=== PATIENT | female | born 1960 | race Caucasian/White ===

== ENCOUNTER 2016-08-24 07:46 | Emergency (ER) | payer BC ==
[2016-08-24 07:58] VITALS: BP 110/77
--- NOTE | 2016-08-24 09:09 | RAD ---
INDICATION: Right knee pain COMPARISON: Right knee November 05, 2003 TECHNIQUE: AP, lateral, tunnel, and sunrise views were obtained. FINDINGS: There is moderate tricompartmental osteophyte change consisting of spurring of all 3 joint space compartments. There is narrowing about the medial joint space compartment and the patella femoral joint space compartment. There are early findings of chondrocalcinosis. There is no joint effusion. IMPRESSION: MODERATE TRICOMPARTMENTAL OSTEOARTHRITIS.
--- NOTE | 2016-08-24 09:41 | UC ---
Verenice Mora Auryana, scribed for Wanda Camarena DO on 08/24/16 at 0905 . Knee Pain HPI - HPI Summary HPI Summary: 55 year old female presents with right knee pain starting yesterday. She reports that the pain started last night, was initially achy, and then upon standing, the right knee gave out suddenly - "caught herself, but didn't go down ". She reports that the pain was severe at the time of the incident, and was unable to bear weight after. She reports clicking of the knee with movement. Currently the pain is a 3/10 without movement. Pain is aggravated by weight bearing. She denies any redness, bruising, swelling, or any fevers, chills, sorethroat, chest pain, SOB, YAO, or any rashes. No above knee pain ad no ankle pain. 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 - History of Current Complaint Chief Complaint: UCLowerExtremity Stated Complaint: KNEE INJURY Time Seen by Provider: 08/24/16 09:22 Hx Obtained From: Patient Hx Last Menstrual Period: n/a ?: No Onset/Duration: Sudden Onset, Lasting Days - last night, Still Present Severity Initially: Moderate Severity Currently: Moderate Location Of Injury: right knee Pain Intensity: 3 - with no movement Pain Scale Used: 0-10 Numeric Character: Dull, Aching Aggravating Factor(s): Movement Alleviating Factor(s): Rest Associated Signs And Symptoms: Positive: Negative Able to Bear Weight: No - extreme pain - Allergies/Home Medications Allergies/Adverse Reactions: Allergies Allergy/AdvReac Type Severity Reaction Status Date / Time No Known Allergies Allergy Verified 07/13/15 06:52 Home Medications: Home Medications Garlique 1 tab PO DAILY 08/24/16 [History] PMH/Surg Hx/FS Hx/Imm Hx - Additional Past Medical History Additional PMH: h/o twisted bowel, s/p tot colectomy GI/ History: Other Other GI/ History: 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 COLECTOMY. RIGHT ACL. LEFT WRIST - Family History Known Family History: Positive: Other - alzheimers, volvulus - Social History Occupation: Employed Full-time Lives: With Family Alcohol Use: None Substance Use Type: None Smoking Status (MU): Never Smoked Tobacco Have You Smoked in the Last Year: No Household Exposure Type: Cigarettes - Immunization History Most Recent Influenza Vaccination: 2014 Most Recent Tetanus Shot: 2012 Most Recent Pneumonia Vaccination: Never Review of Systems Constitutional: Negative Skin: Negative Eyes: Negative ENT: Negative Respiratory: Negative Cardiovascular: Negative Gastrointestinal: Negative Genitourinary: Negative Motor: Negative Neurovascular: Negative Musculoskeletal: Arthralgia - right knee pain Neurological: Negative Psychological: Negative All Other Systems Reviewed And Are Negative: Yes Physical Exam Triage Information Reviewed: Yes Appearance: Well-Appearing, No Pain Distress, Well-Nourished Vital Signs: Initial Vital Signs Temp 99.5 F 08/24/16 07:52 Pulse 73 08/24/16 07:52 Resp 16 08/24/16 07:52 BP 110/77 08/24/16 07:52 Pulse Ox 100 08/24/16 07:52 Vital Signs Reviewed: Yes Eyes: Positive: Conjunctiva Clear. Negative: Discharge ENT: Positive: Hearing grossly normal. Negative: Muffled/hoarse voice Neck: Positive: Supple, Nontender Respiratory: Positive: Lungs clear, Normal breath sounds, No respiratory distress, No accessory muscle use Cardiovascular: Positive: RRR, No Murmur Musculoskeletal Exam: Normal Musculoskeletal: Positive: Strength Intact, ROM Intact, Other: - Surgical scar noted otherwise normal knee inspection. Pain with flexion and extension of the right knee Pain with medial stress of the right knee Positive McMurrays sign Neurological: Positive: Alert, Muscle Tone Normal Psychological Exam: Normal Psychological: Positive: Age Appropriate Behavior Skin Exam: Normal, Other - warm, dry, normal color Skin: Positive: Other Diagnostics - Radiology RIGHT KNEE XR Xray Interpretation: Positive (See Comments) - MODERATE TRICOMPARTMENTAL OA Radiology Interpretation Completed By: Radiologist Knee Pain Course/Dx - Differential Dx/Diagnosis Differential Diagnosis/HQI/PQRI: Internal Derangement Of Knee, Sprain, Strain Provider Diagnoses: MCL sprain. Possible internal derangement of the knee Discharge - Discharge Plan Condition: Stable Disposition: HOME Patient Education Materials: Knee Immobilizer (ED), Knee Sprain (ED) Referrals: Ernie Keyes MD [Medical Doctor] - 3 Days (Follow up in 3-5 days or as per ortho.) Drake Cerda MD [Primary Care Provider] - If Needed Additional Instructions: Your history and exam is suspicous for possible internal derrangement of the knee. So, you will need follow up with an orthopedic provider to further evaluate your injury. The documentation as recorded by the Verenice lezama Auryana accurately reflects the service I personally performed and the decisions made by me, Wanda Camarena DO.
== END 2016-08-24 09:44 | disposition home or self-care (01) ==
LOC: UCEAST 07:46
DX: S83.411A Sprain of medial collateral ligament of right knee, initial encounter (principal); X58.XXXA Exposure to other specified factors, initial encounter; Y92.9 Unspecified place or not applicable
CPT/HCPCS: 99212; G0463

== ENCOUNTER 2017-02-12 07:56 | Emergency (ER) | payer BC ==
[2017-02-12 08:13] VITALS: BP 141/84
[2017-02-12] MEDS ORDERED: predniSONE TAB* 20 MG PO ONE (08:21)
[2017-02-12] MEDS ORDERED: Albuterol HFA INHALER* 8 gm MDI INH ONE (08:21)
[2017-02-12] MEDS ORDERED: Amoxicillin PO (*) 250 MG CAP PO ONE (08:22)
[2017-02-12] MEDS ORDERED: Amoxicillin PO (*) 500 MG CAP PO ONE (08:23)
--- NOTE | 2017-02-12 08:33 | UC ---
Respiratory Complaint HPI - HPI Summary HPI Summary: 56 yo female with a 2 month hx of PND during this time she never felt ill then a few days ago she developed a cough/chest tightness and laryngitis along with malaise and myalgias no SOB hx pneumonia - History of Current Complaint Chief Complaint: UCRespiratory Stated Complaint: CHEST CONGESTION COUGH Time Seen by Provider: 02/12/17 08:09 Hx Obtained From: Patient Hx Last Menstrual Period: n/a Onset/Duration: Gradual Onset, Lasting Days Timing: Constant Severity Initially: Mild Severity Currently: Moderate Pain Intensity: 4 Pain Scale Used: 0-10 Numeric Character: Cough: Nonproductive Aggravating Factors: Exertion, Deep Breaths Alleviating Factors: Nothing Associated Signs And Symptoms: Positive: Hoarseness - Allergies/Home Medications Allergies/Adverse Reactions: Allergies Allergy/AdvReac Type Severity Reaction Status Date / Time No Known Allergies Allergy Verified 02/12/17 08:18 PMH/Surg Hx/FS Hx/Imm Hx Previously Healthy: Yes Endocrine History: Thyroid Disease Cardiovascular History: Hypertension Respiratory History: Pneumonia - Surgical History Surgical History: Yes Surgery Procedure, Year, and Place: tubal ligation. COLECTOMY. RIGHT ACL. LEFT WRIST - Family History Known Family History: Positive: Other - alzheimers, volvulus Negative: Hypertension, Respiratory Disease - Social History Alcohol Use: Occasionally Substance Use Type: None Smoking Status (MU): Never Smoked Tobacco Have You Smoked in the Last Year: No Household Exposure Type: Cigarettes - Immunization History Most Recent Influenza Vaccination: 2017 Most Recent Tetanus Shot: 2013 Most Recent Pneumonia Vaccination: Never Review of Systems Constitutional: Fatigue Skin: Negative Eyes: Negative ENT: Sinus Congestion Respiratory: Cough Cardiovascular: Negative Gastrointestinal: Negative Genitourinary: Negative Motor: Negative Neurovascular: Negative Musculoskeletal: Negative Neurological: Negative Psychological: Negative Is Patient Immunocompromised?: No All Other Systems Reviewed And Are Negative: Yes Physical Exam Triage Information Reviewed: Yes Appearance: Well-Appearing, No Pain Distress, Well-Nourished Vital Signs: Initial Vital Signs Temp 98.6 F 02/12/17 08:05 Pulse 76 02/12/17 08:05 Resp 16 02/12/17 08:05 BP 141/84 02/12/17 08:05 Pulse Ox 98 02/12/17 08:05 Vital Signs Reviewed: Yes Eyes: Positive: Conjunctiva Clear ENT: Positive: Hearing grossly normal, TMs normal, Hoarse voice, Uvula midline. Negative: Nasal congestion, Nasal drainage, Tonsillar swelling, Tonsillar exudate, Trismus, Muffled voice, Sinus tenderness Dental Exam: Normal Neck: Positive: Supple, Nontender, No Lymphadenopathy Respiratory: Positive: Normal breath sounds, No respiratory distress, No accessory muscle use, Wheezing - with forced expiration Cardiovascular: Positive: RRR, No Murmur Musculoskeletal: Positive: ROM Intact, No Edema Neurological: Positive: Alert Psychological Exam: Normal Skin Exam: Normal UC Diagnostic Evaluation - Laboratory O2 Sat by Pulse Oximetry: 98 - normal/ not hypoxic Respiratory Course/Dx - Course Course Of Treatment: No MDIs in [facility]. declines neb here. 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
== END 2017-02-12 08:38 | disposition home or self-care (01) ==
LOC: UCEAST 07:56
DX: J20.9 Acute bronchitis, unspecified (principal); I10 Essential (primary) hypertension; E07.9 Disorder of thyroid, unspecified; Z77.22 Contact with and (suspected) exposure to environmental tobacco smoke (acute) (chronic); Z87.01 Personal history of pneumonia (recurrent)
CPT/HCPCS: 99212; A9270-GY; G0463; J7512

== ENCOUNTER 2018-04-07 13:57 | Emergency (ER) | payer BC ==
[2018-04-07 14:19] VITALS: BP 149/80
--- NOTE | 2018-04-07 14:43 | UC ---
Respiratory Complaint HPI - HPI Summary HPI Summary: had cold symps for 10 days, saw PCP and was told URI. now lost her voice and is still coughing. OTC's not helping cough - History of Current Complaint Chief Complaint: UCRespiratory Stated Complaint: COUGH Time Seen by Provider: 04/07/18 14:14 Hx Obtained From: Patient Hx Last Menstrual Period: n/a Onset/Duration: Gradual Onset Pain Intensity: 0 Aggravating Factors: Deep Breaths Alleviating Factors: Nothing Associated Signs And Symptoms: Negative: Fever, Chills, Hemoptysis, Dizziness, Calf Pain, Nasal Congestion - Allergies/Home Medications Allergies/Adverse Reactions: Allergies Allergy/AdvReac Type Severity Reaction Status Date / Time No Known Allergies Allergy Verified 04/07/18 14:11 PMH/Surg Hx/FS Hx/Imm Hx Endocrine History: Hypothyroidism Cardiovascular History: Cardiac Disease Psychological History: Depression - Surgical History Surgical History: Yes Surgery Procedure, Year, and Place: tubal ligation. COLECTOMY. RIGHT ACL. LEFT WRIST - Family History Known Family History: Positive: Other - alzheimers, volvulus Negative: Hypertension, Respiratory Disease - Social History Occupation: Employed Full-time Lives: With Family Alcohol Use: Occasionally Substance Use Type: None Smoking Status (MU): Never Smoked Tobacco Have You Smoked in the Last Year: No Household Exposure Type: Cigarettes - Immunization History Most Recent Influenza Vaccination: 2017 Most Recent Tetanus Shot: 2013 Most Recent Pneumonia Vaccination: Never Review of Systems All Other Systems Reviewed And Are Negative: Yes Constitutional: Positive: Negative. Negative: Fever Skin: Positive: Negative ENT: Positive: Negative Respiratory: Positive: Cough Cardiovascular: Positive: Negative Psychological: Positive: Negative Is Patient Immunocompromised?: No Physical Exam Triage Information Reviewed: Yes Appearance: Well-Appearing, No Pain Distress, Well-Nourished Vital Signs: Initial Vital Signs Temp 97 F 04/07/18 14:13 Pulse 63 04/07/18 14:13 Resp 18 04/07/18 14:13 BP 149/80 04/07/18 14:13 Pulse Ox 98 04/07/18 14:13 Vital Signs Reviewed: Yes Eyes: Positive: Conjunctiva Clear ENT: Positive: Nasal congestion, Other - hoarsness Neck: Positive: No Lymphadenopathy Respiratory: Positive: Lungs clear, No respiratory distress Cardiovascular Exam: Normal Cardiovascular: Positive: RRR Psychological Exam: Normal Skin Exam: Normal UC Diagnostic Evaluation - Laboratory O2 Sat by Pulse Oximetry: 98 Respiratory Course/Dx - Differential Dx/Diagnosis Differential Diagnosis/HQI/PQRI: Bronchitis, Influenza, Laryngitis, Lower Resp Infection, Sinusitis Provider Diagnosis: Bronchitis Discharge - Sign-Out/Discharge Documenting (check all that apply): Patient Departure All imaging exams completed and their final reports reviewed: No Studies - Discharge Plan Condition: Good Disposition: HOME Prescriptions: predniSONE TAB* [Deltasone 10 MG TAB*] 10 mg PO DAILY #27 tab Patient Education Materials: Acute Bronchitis (ED) Referrals: Drake Cerda MD [Primary Care Provider] - 2 Days (if no better) Additional Instructions: drink plenty of fluids start prednisone as directed return if symptoms worsen - Billing Disposition and Condition Condition: GOOD Disposition: Home - Attestation Statements Provider Attestation: I was available for consult. This patient was seen by the ERLINDA. The patient was not presented to , seen by or examined by nd -Don Santo MD
== END 2018-04-07 15:00 | disposition home or self-care (01) ==
LOC: UCEAST 13:57
DX: J40 Bronchitis, not specified as acute or chronic (principal); Z77.22 Contact with and (suspected) exposure to environmental tobacco smoke (acute) (chronic)

== ENCOUNTER 2018-05-02 06:44 | Inpatient (IN) | payer BC ==
--- NOTE | 2018-04-23 10:44 | HP ---
HISTORY AND PHYSICAL: DATE OF ADMISSION/SURGERY: 05/02/18 DATE OF OFFICE VISIT: 04/22/18 SURGEON: Kristy Evangelista MD. PROCEDURE: Right total knee arthroplasty. CHIEF COMPLAINT: Right knee pain. HISTORY OF PRESENT ILLNESS: Ms. Haskins is a 57-year-old female with end-stage osteoarthritis of th e right knee. She has failed conservative treatment and elected to proceed with a right total knee a rthroplasty. PAST MEDICAL HISTORY: Srinivas's thyroiditis, depression, hypertension, and sleep apnea. PAST SURGICAL HISTORY: Right knee surgery x2, colectomy, ORIF of the left wrist and tubal ligation. CURRENT MEDICATIONS: 1. Naproxen 500 mg once a day. 2. Clonidine 0.2 mg once a day. 3. Effexor 150 mg daily. 4. Estroven 1 tab daily. 5. Norvasc 10 mg a day. 6. Levothyroxine 150 mcg a day. ALLERGIES: No known drug allergies. FAMILY HISTORY: Cancer and coronary artery disease. SOCIAL HISTORY: She is a 57-year-old female. She lives with her daughter. She does no smoke, use d rugs or alcohol. REVIEW OF SYSTEMS: A complete 14-point review of systems was reviewed with the patient. It was posi tive for thyroid disease. She denies the history of DVT, PE, hepatitis, HIV or anesthesia problems. PHYSICAL EXAMINATION GENERAL: She is well developed, well nourished, in no acute distress. VITAL SIGNS: She stands 5 feet 4 inches tall, weighs 202 pounds. Blood pressure 120/78, and heart r ate 68. HEENT: Normocephalic, atraumatic. NECK: Supple. No palpable lymph nodes. PULMONARY: Lungs are clear to auscultation bilaterally. CARDIO: Regular rate and rhythm. Strong S1 and S2. ABDOMEN: Soft, nontender, and nondistended. MUSCULOSKELETAL: Right lower extremity: The skin is intact. There are no open wounds or abrasions. There is moderate joint effusion. Range of motion is 10 to 120 degrees of flexion with patellofemo ral crepitus. She has 2+ dorsalis pedis pulse. She is able to dorsiflex and plantar flex and has in tact sensation. NEUROLOGIC: She is alert and oriented x3. ASSESSMENT AND PLAN: Ms. Haskins is a 57-year-old female with end-stage osteoarthritis of the rig ht knee. She has failed conservative treatment and elected to proceed with a right total knee arthro plasty. Surgery is scheduled for 05/02/[address] Evangelista discussed the risks and benefit s of the surgery at today's visit and all of her questions were answered. She will follow with Dr. Diane zamudio 2 weeks after the surgery. BASSEM HAYS [id number]/[facility] #: [id number]
[~2018-05-02 06:44] MED LIST: Acetaminophen IV 1GM/100ML * 1,000 MG/100 ML VIAL IVPB ONE; Buffered Lidocaine 1% SYRIN* 1 ML/SYRINGE INTRADERM ONE; Dexamethasone IV* 4 MG/ML 1 ML (4 MG) IV SLOW PU ONE; Famotidine IV* 10 MG/ML 2 ML (20 mg) IV ONE; Gabapentin CAP(*) 300 MG PO ONE; Lactated Ringers 1000 ML Bag* 1,000 ML IV SCH; Tranexamic Acid 1,000 MG in NS 0.9% 50 ML* (outpatient use) IV SCH; celeCOXIB CAP* 200 MG PO ONE
--- OUTSIDE RECORDS SUMMARY | 2018-05-02 06:48 | XMS REPORT | Continuity of Care Document ---
:1960 External Reference #:[id number] Author Name UrielLyndsay mora Care Team Providers Name Role Phone Carlos Sierra MD Primary Care Physician Unavailable Payers Date Identification Numbers Payment Provider Subscriber Effective: 2013 Policy Number: [id number] BS Facets Becky Haskins PayID: [id number] [address] [address] [place] [address] Advance Directives Description No Information Available Problems Date Description Provider Status Onset: 11/17/2013 Electrocardiogram abnormal Emory Roldan M.D. Onset: 11/17/2013 Malignant essential hypertension Emory Roldan M.D. Onset: 11/17/2013 Dyspnea Emory Roldan MYelena Onset: 11/17/2013 Paroxysmal supraventricular Emory Roldan tachycardia M.DHilario Onset: 11/17/2013 Edema Emory Roldan M.D. Onset: 08/25/2016 Localized, secondary Kristy Evangelista M.D. Active osteoarthritis Onset: 07/25/2017 Localized, primary osteoarthritis Kristy Evangelista M.D. Active Onset: 08/09/2017 Obstructive sleep apnea syndrome Zahra Webster DNP, RN, Active SUPERINTENDENT LAUNDRY-BC Onset: 08/09/2017 Hypersomnia Zahra Webster DNP, RN, Active SUPERINTENDENT LAUNDRY-BC Family History Date Family Member(s) Observation Comments Father Twisted Bowels Father due to Alzheimer's Disease () Father Alzheimer's Disease Mother Lung Cancer Mother due to Lung Cancer () Mother Liver Cancer Mother due to Liver Cancer () Mother [place] smoker for 40 years Siblings 5 1 and 4 living Social History Type Date Description Comments Sex Unknown Marital Status Lives With Son and his girlfriend Occupation radiology aide Tobacco Use Start: Unknown Never Smoked Cigarettes Smoking Status Reviewed: 04/30/18 Never Smoked Cigarettes ETOH Use Denies alcohol use Tobacco Use Start: Unknown Patient has never smoked Recreational Drug Use Denies Drug Use Exercise Type/Frequency Exercises rarely Allergies, Adverse Reactions, Alerts Description No Known Drug Allergies Medications Medication Date Status Form Strength Qnty SIG Indications Ordering Provider Naproxen 11/02 Active Tablets 500mg 90tab 1 tablet M25.562 Kristy s with food by Jean Carlos, mouth twice M.D. a day Clonidine HCL 04/24 Active Tablets 0.2mg 60tab 1 by mouth Quyb s once a day Omaira Adler M.D. Effexor XR 11/17 Active Caps ER 150mg 90cap 1 by mouth Lashell 24HR s every day Omaira Adler M.D. Estroven 11/17 Active Tablets 1 tab daily Qutaybdiana SHilario Adler M.D. Norvasc Active Tablets 10mg 30tab 1 by mouth Unknown /0000 s every day Levothyroxine Active Tablets 150mcg 30tab 1 by mouth Unknown Sodium /0000 s every day Vesicare 11/17 Hx Tablets 5mg 30tab 1 po daily Qu s S. - Vitor 07/10 , MYelena Milk Of 11/17 Hx Suspension 7.75% 3000m 30 yb l milliliters S. - oral 2x day Maghaydah 07/10 , M.DHilario Vitamin D High 11/17 Hx Capsules 2000Units 1 by mouth Qutaybeh every day S. - haydah 04/21 , M.D. Clonidine HCL 11/17 Hx Tablets 0.1mg 90tab 1 by mouth Qutayb s bid S. - Rosemarieah 04/24 , M.DHilario /2014 Orphenadrine Hx Tablets ER 100mg 1 po bid prn Unknown Citrate ER /0000 12HR for spasm - 11/16 Prednisone 00/00 Hx Tablets 10mg 30tab 2 bid x Unknown /0000 s 3days, then - 2 am, 1pm 11/16 x3days 1 bid x3days then 1 qd x3 days Fluoxetine HCL Hx Capsules 20mg 90cap 3 by mouth Unknown /0000 s every day - 11/16 Oxybutynin 00 Hx Tablets ER 15mg 90tab 1 by mouth Unknown Chloride ER /0000 24HR s every day - 11/16 Valacyclovir Hx Tablets 500mg 60tab take 1 po qd Unknown HCL /0000 s - 06/16 Naproxen Hx Tablets 500mg 40tab 1 tablet Unknown /0000 s with food by - mouth once a 11/02 day prn /201712/25/13 - pt only takes once a day Clonidine HCL Hx Tablets 0.1mg 30tab 1 po q Unknown /0000 s bedtime - 11/[address] 20mg 90cap 1 by mouth Unknown /0000 s every day - 07/10 Medications Administered in Office Medication Date Status Form Strength Qnty SIG Indications Ordering Provider Depomedrol Administered Injection Kristy 40MG 018 Tom Evangelista Depomedrol Administered Injection Kristy 40MG 018 Tom Evangelista Depomedrol Administered Injection Kristy 40MG Anand Evangelista M.D. Depomedrol Administered Injection Kristy 40MG 018 Tom Evangelista Depomedrol Administered Injection Roseanna 40MG 010 SHELBY Meadows Immunizations Description No Information Available Vital Signs Date Vital Result Comment 04/30/2018 8:13am Height 64 inches 5'4" Weight 202.00 lb Heart Rate 70 /min BP Systolic Sitting 130 mmHg Lue large cuff BP Diastolic Sitting 82 mmHg Lue large cuff Respiratory Rate 16 /min O2 % BldC Oximetry 99 % BMI (Body Mass Index) 34.7 kg/m2 04/22/2018 8:40am Height 64 inches 5'4" Weight 202.00 lb Heart Rate 68 /min BP Systolic 120 mmHg BP Diastolic 78 mmHg BMI (Body Mass Index) 34.7 kg/m2 02/01/2018 3:35pm Height 64 inches 5'4" Weight 198.00 lb BP Systolic 116 mmHg BP Diastolic 71 mmHg Respiratory Rate 15 /min Pain Level 7 BMI (Body Mass Index) 34.0 kg/m2 11/02/2017 3:06pm Height 64 inches 5'4" Weight 214.75 lb Heart Rate 61 /min BP Systolic 122 mmHg BP Diastolic 86 mmHg Respiratory Rate 16 /min Body Temperature 97.6 F Pain Level 5 BMI (Body Mass Index) 36.9 kg/m2 10/16/2017 8:00am Height 64 inches 5'4" Weight 211.00 lb Heart Rate 56 /min BP Systolic Sitting 110 mmHg BP Diastolic Sitting 68 mmHg Respiratory Rate 14 /min O2 % BldC Oximetry 99 % BMI (Body Mass Index) 36.2 kg/m2 08/09/2017 8:12am Height 64 inches 5'4" Weight 208.25 lb Heart Rate 66 /min BP Systolic Sitting 124 mmHg Rue regular cuff BP Diastolic Sitting 84 mmHg Rue regular cuff Respiratory Rate 16 /min O2 % BldC Oximetry 97 % BMI (Body Mass Index) 35.7 kg/m2 07/25/2017 12:01pm Height 64 inches 5'4" Weight 208.00 lb Heart Rate 66 /min BP Systolic Sitting 120 mmHg BP Diastolic Sitting 84 mmHg Respiratory Rate 16 /min Pain Level 5 BMI (Body Mass Index) 35.7 kg/m2 07/11/2017 7:43am Height 64 inches 5'4" Weight 204.00 lb Heart Rate 68 /min BP Systolic Sitting 118 mmHg BP Diastolic Sitting 82 mmHg Respiratory Rate 14 /min O2 % BldC Oximetry 99 % BMI (Body Mass Index) 35.0 kg/m2 Neck Circumference in inches 14.75 08/25/2016 11:33am Height 64 inches 5'4" Weight 200.00 lb Heart Rate 55 /min BP Systolic 116 mmHg BP Diastolic 79 mmHg Body Temperature 97.6 F BMI (Body Mass Index) 34.3 kg/m2 06/09/2014 8:18am Height 64 inches 5'4" Weight 213.00 lb Heart Rate 70 /min BP Systolic 112 mmHg LA reg BP Diastolic 80 mmHg LA reg BMI (Body Mass Index) 36.6 kg/m2 04/24/2014 3:05pm Height 64 inches 5'4" Weight 211.75 lb Heart Rate 84 /min BP Systolic Sitting 148 mmHg left, reg BP Diastolic Sitting 98 mmHg left, reg BMI (Body Mass Index) 36.3 kg/m2 12/25/2013 3:19pm Height 64 inches 5'4" Weight 206.00 lb Heart Rate 72 /min BP Systolic Sitting 122 mmHg LA, reg BP Diastolic Sitting 86 mmHg LA, reg BMI (Body Mass Index) 35.4 kg/m2 11/17/2013 3:23pm Height 64 inches 5'4" Weight 204.50 lb Heart Rate 66 /min BP Systolic 150 mmHg LA reg cuff BP Diastolic 97 mmHg LA reg cuff BMI (Body Mass Index) 35.1 kg/m2 11/17/2013 3:17pm Height 64 inches 5'4" Weight 204.50 lb BMI (Body Mass Index) 35.1 kg/m2 Results Test Date Facility Test Result H/L Range Note Laboratory test 04/22/2018 [facility] TSH (Thyroid 2.94 mcIU/mL N 0.34-5.[address] [place]) [place] [address] [phone] Type & Screen 04/22/2018 [facility] Patient Blood O Positive [address] [place] [address] [phone] Antibody Screen NEGATIVE Laboratory test 04/22/2018 [facility] Partial 25.6 seconds Low 26.0-36.[address] [place] [address] PTT [phone] Inr/Protime 04/22/2018 [facility] Inr 0.79 N 0.77-1.[address] [place] [address] [phone] Comp Metabolic 04/22/2018 [facility] Sodium 138 mmol/L N 135- [address] [place] [address] [phone] Potassium 4.4 mmol/L N 3.5-5.0 Chloride 106 mmol/L N 101-111 Co2 Carbon Dioxide 25 mmol/L N 22-32 Anion Gap 7 mmol/L N 2-11 Glucose 102 mg/dL High 70-100 Blood Urea Nitrogen 13 mg/dL N 6-24 Creatinine 0.73 mg/dL N 0.51-0.95 BUN/Creatinine Ratio 17.8 N 8-20 Calcium 9.5 mg/dL N 8.6-10.3 Total Protein 6.4 g/dL N 6.4-8.9 Albumin 3.9 g/dL N 3.2-5.2 Globulin 2.5 g/dL N 2-4 Albumin/Globulin Ratio 1.6 N 1-3 Total Bilirubin 0.50 mg/dL N 0.2-1.0 Alkaline Phosphatase 56 U/L N 34-104 Alt 15 U/L N 7-52 Ast 16 U/L N 13-39 Egfr Non- 81.9 >60 Egfr 99.1 >60 1 CBC Auto Diff 04/22/2018 [facility] White Blood 5.3 10^3/uL N 3.5-10.[address] [place] [address] [phone] Red Blood Count 4.05 10^6/uL N 4.00-5.40 Hemoglobin 12.4 g/dL N 12.0-16.0 Hematocrit 38 % N 35-47 Mean Corpuscular Volume 93 fL N 80-97 Mean Corpuscular Hemoglobin 31 pg N 27-31 Mean Corpuscular HGB Conc 33 g/dL N 31-36 Red Cell Distribution Width 14 % N 10.5-15 Platelet Count 278 10^3/uL N 150-450 Mean Platelet Volume 7.6 fL N 7.4-10.4 Abs Neutrophils 3.1 10^3/uL N 1.5-7.7 Abs Lymphocytes 1.6 10^3/uL N 1.0-4.8 Abs Monocytes 0.5 10^3/uL N 0-0.8 Abs Eosinophils 0.2 10^3/uL N 0-0.6 Abs Basophils 0.1 10^3/uL N 0-0.2 Abs Nucleated RBC 0 10^3/uL Granulocyte % 57.4 % Lymphocyte % 29.8 % Monocyte % 8.5 % Eosinophil % 3.3 % Basophil % 1.0 % Nucleated Red Blood Cells % 0 Comp Metabolic Panel 11/18/2013 [facility] Sodium 135 mmol/L N 133-[address] [place] [address] [phone] Potassium 4.4 mmol/L N 3.7-5.6 Chloride 105 mmol/L N 101-111 Co2 Carbon Dioxide 27 mmol/L N 22-32 Anion Gap 3 mmol/L N 2-11 Glucose 100 mg/dL N 70-100 Blood Urea Nitrogen 14 mg/dL N 6-24 Creatinine 0.91 mg/dL N 0.51-0.95 BUN/Creatinine Ratio 15.4 N 8-20 Calcium 9.2 mg/dL N 8.6-10.3 Total Protein 6.8 g/dL N 6.4-8.9 Albumin 4.0 g/dL N 3.2-5.2 Globulin 2.8 g/dL N 2-4 Albumin/Globulin Ratio 1.4 N 1-3 Total Bilirubin 0.40 mg/dL N 0.2-1.0 Alkaline Phosphatase 52 U/L N 34-104 Alt 14 U/L N 7-52 Ast 16 U/L N 13-39 Egfr Non- 64.4 N >60 Egfr 82.8 N >60 2 Laboratory test 11/18/2013 [facility] B Type Natriuretic 22 pg/ mL N [address] [place] [address] [phone] C Reactive Protein < 0.10 mg/L N < 5.00 4 Erythrocyte Sed Rate 17 mm/Hr N 0-30 1 Because ethnic data is not always readily available, this report includes an eGFR for both -Americans and non- Americans. The National Kidney Disease Education Program (NKDEP) does not endorse the use of the MDRD equation for patients that are not between the ages of 18 and 70, are , have extremes of body size, muscle mass, or nutritional status, or are non- or non-. According to the National Kidney Foundation, irrespective of diagnosis, the stage of the disease is based on the level of kidney function: Stage Description GFR(mL/min/1.73 m(2)) 1 Kidney damage with normal or decreased GFR 90 2 Kidney damage with mild decrease in GFR 60-89 3 Moderate decrease in GFR 30-59 4 Severe decrease in GFR 15-29 5 Kidney failure <15 (or dialysis) 2 Because ethnic data is not always readily available, this report includes an eGFR for both -Americans and non- Americans. The National Kidney Disease Education Program (NKDEP) does not endorse the use of the MDRD equation for patients that are not between the ages of 18 and 70, are , have extremes of body size, muscle mass, or nutritional status, or are non- or non-. According to the National Kidney Foundation, irrespective of diagnosis, the stage of the disease is based on the level of kidney function: Stage Description GFR(mL/min/1.73 m(2)) 1 Kidney damage with normal or decreased GFR 90 2 Kidney damage with mild decrease in GFR 60-89 3 Moderate decrease in GFR 30-59 4 Severe decrease in GFR 15-29 5 Kidney failure <15 (or dialysis) 3 >100 to <200 pg/mL: likely compensated congestive heart failure (CHF) 200 to 400 pg/mL: likely moderate CHF >400 pg/mL: likely moderate to severe CHF [place] [facility] 4 Acute inflammation: >10.00 Procedures Date Code Description Status 02/01/201894821 Inject/Drain Joint/Bursa Major W/O US Completed 11/02/2017 Inject/Drain Joint/Bursa Major W/O US Completed 07/17/2017 83140 Sleep Study Unattended,HRT Rate,Oxygen Sat,Resp Completed Effort/Airflow 07/16/2015 76562 EKG, Interpretation Only Completed 07/14/2015 31828 EKG, Interpretation Only Completed 04/02/2014 52500 Treadmill Interp/Report Only Completed 04/02/2014 89703 Stress Test Supervsn W/Out I/R Completed 02/03/2014 56474 ECHO Stress Test Incl Perf Contiuous ekg Monitoring Completed W/Phys Superv 11/25/2013 85181 ECHO Transthorasic Realtime 2D W Doppler & Color Flow Completed Hosp 11/25/2013 19070 Holter Monitor Review (24 hr)dr review & interp only Completed 11/17/2013 16702 EKG Tracing & Interpretation Completed 01/13/2011 33105 Rad Exam; Elbow, Limited Completed 01/04/2011 35882 Rad Exam; Elbow, Limited Completed 12/27/2010 20301 Closed Treatment Radial Head Or Neck FX W/O Completed Manipulation 01/13/2010 58092 Rad Exam; OS Alcis Completed 11/10/2009 69076 Xray Knee 3 Views Completed 11/10/2009 22271 Rad Exam; Knee, Ap&L Completed 11/10/200922368 Inject/Drain Joint/Bursa Major W/O US Completed 11/10/2009 [id number] Colonoscopy Completed 11/13/2005 [id number] Colonoscopy Completed Encounters Type Date Location Provider Dx Diagnosis Office Visit 04/30/2018 [facility] G47.33 Obstructive sleep 8:30a Sleep Services Of ALAN Berrios apnea (adult) [facility] (pediatric) G47.10 Hypersomnia, unspecified Z68.34 Body mass index (BMI) 34.0-34.9, adult Office Visit 02/01/2018 3:15p Orthopedic Services Kristyashleigh Evangelista, M25.562 Pain in left Of C.M.A. M.D. knee M25.561 Pain in right knee M25.462 Effusion, left knee M25.461 Effusion, right knee M17.0 Bilateral primary osteoarthritis of knee Office Visit 11/02/2017 3:00p Orthopedic Services Kristy Evangelista, M25.562 Pain in left Of C.M.A. M.D. knee M25.561 Pain in right knee M25.462 Effusion, left knee M25.461 Effusion, right knee M17.0 Bilateral primary osteoarthritis of knee Office Visit 10/16/2017 8:15a [facility] Mary G47.33 Obstructive sleep Sleep Services Of MD Jose apnea (adult) [facility] (pediatric) G47.10 Hypersomnia, unspecified E66.09 Other obesity due to excess calories Office Visit 08/09/2017 [facility] And Zahra G47.33 Obstructive sleep 8:00a Sleep Services Of JENIFER Webster, RN, apnea (adult) [facility] SUPERINTENDENT LAUNDRY-BC (pediatric) G47.14 Hypersomnia due to medical condition E66.9 Obesity, unspecified Z68.35 Body mass index (BMI) 35.0-35.9, adult Office Visit 07/25/2017 Orthopedic Kristy M17.11 Unilateral primary 11:30a Services Of Tom Evangelista osteoarthritis, right C.M.A. knee M25.561 Pain in right knee M25.461 Effusion, right knee M17.0 Bilateral primary osteoarthritis of knee Office Visit 07/11/2017 8:00a [facility] Mary G47.9 Sleep disorder, Sleep Services Of MD Jose unspecified [facility] G47.10 Hypersomnia, unspecified E66.09 Other obesity due to excess calories Z68.35 Body mass index (BMI) 35.0-35.9, adult Office Visit 08/25/2016 10:30a Orthopedic Services Kristy Evangelista, M25.561 Pain in right Of C.M.A. MHilarioD. knee M25.461 Effusion, right knee M17.31 Unilateral post-traumatic osteoarthritis, right knee S83.411A Sprain of medial collateral ligament of right knee, init Office Visit 06/09/2014 8:30a [facility] Lynn Strange, 786.05 Shortness Of PA Breath 427.0 PSVT Paroxysmal Supraventricular Tachycardia 401.1 Hypertension Benign Office Visit 04/24/2014 3:40p [facility] Usman S. 786.05 Shortness Of Tom Adler Breath 427.0 PSVT Paroxysmal Supraventricular Tachycardia 278.00 Obesity Unspec 401.0 Hypertension Malignant Office Visit 04/02/2014 8:30a [facility] Usman S. 786.05 Shortness Of Tom Adler Breath 427.0 PSVT Paroxysmal Supraventricular Tachycardia 278.00 Obesity Unspec Office Visit 02/03/2014 3:30p [facility] Usman S. 786.05 Shortness Of Tom Adler Breath 401.0 Hypertension Malignant 427.0 PSVT Paroxysmal Supraventricular Tachycardia 785.0 Tachycardia Unspec Office Visit 12/25/2013 3:30p [facility] Lynn Strange, 786.05 Shortness Of PA Breath 401.0 Hypertension Malignant 427.0 PSVT Paroxysmal Supraventricular Tachycardia Office 11/17/2013 [facility] Usman S. 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 Office Visit 11/10/2009 9:30a Orthopedic Roseanna Meadows, 717.9 Internal Services Of [facility] Derangement Knee C.M.A. Unspec 715.96 Osteoarthrosis Unspec Genlzd Or Localized Lower Leg Plan of Treatment Future Appointment(s):05/02/2018 8:00 am - SHELBY Cruz at [facility]05/02/2018 8:00 am - BASSEM Tinoco at [facility]05/15/2018 9:45 am - Kristy Evangelista M.D. at [facility]05/02/2018 8:00 am - Kristy Evangelista M.D. at [facility]04/30/2018 - Eva Berrios NPG47.33 Obstructive sleep apnea (adult) (pediatric)New Orders:[facility], Ordered: 04/30/18Follow up: 1 yearRecommendations:Remember to bring your CPAP when you go to the hospital for your knee surgery. If you have any sleepiness while driving you MUST avoid operating a vehicle or machinery. If you have difficulty with your equipment, or need to replace your mask or hoses, please contact your homecare agency. If you have any further questions, please call the [facility] at [phone] Hypersomnia, gremgmhvskxH24.34 Body mass index (BMI ) 34.0-34.9, adult
--- OUTSIDE RECORDS SUMMARY | 2018-05-02 06:48 | XMS REPORT | Continuity of Care Document ---
:1960 External Reference #:[id number] Author Name Shana Estrada Care Team Providers Name Role Phone Drake Cerda MD Primary Care Physician Unavailable Payers Date Identification Numbers Payment Provider Subscriber Effective: 2013 Policy Number: [id number] BS Facets Becky Haskins PayID: [id number] [address] [address] [place] [address] Advance Directives Description No Information Available Problems [...] apnea syndrome Zahra Webster DNP, RN, Active HOME OFFICE REPRESENTATIVE-BC Onset: 08/09/2017 Hypersomnia Zahra Webster DNP, RN, Active HOME OFFICE REPRESENTATIVE-BC Family History Date Family Member(s) Observation Comments [...] Lives With Son and his girlfriend Occupation interventional radiology technologist Tobacco Use Start: Unknown Never Smoked Cigarettes Smoking Status Reviewed: 04/22/18 Never Smoked Cigarettes ETOH Use Denies alcohol [...] Qu s S. - Vitor 07/10 , Tom Milk Of 11/17 Hx Suspension 7.75% 3000m 30 l milliliters S. - oral 2x day [...] /0000 s every day - 11/16 Oxybutynin Hx Tablets ER 15mg 90tab 1 by [...] Available Vital Signs Date Vital Result Comment 04/22/2018 8:40am Height 64 inches 5'4" Weight [...] Date Facility Test Result H/L Range Note Comp Metabolic Panel 11/18/2013 [facility] Sodium 135 mmol/L N 133-[address] [place] [address] [phone] Potassium 4.4 mmol/L N 3.7-5.6 Chloride 105 [...] 64.4 N >60 Egfr 82.8 N >60 1 Laboratory test 11/18/2013 [facility] B Type Natriuretic 22 pg/ mL N [address] [place] [address] [phone] C Reactive Protein < 0.10 mg/L N < 5.00 3 Erythrocyte Sed Rate 17 mm/Hr N 0-30 [...] 5 Kidney failure <15 (or dialysis) 2 >100 to <200 pg/mL: likely compensated congestive heart failure (CHF) 200 to 400 pg/mL: likely moderate CHF >400 pg/mL: likely moderate to severe CHF [place] [facility] 3 Acute inflammation: >10.00 Procedures Date Code Description Status 02/01/201882302 Inject/Drain Joint/Bursa Major W/O US Completed 11/02/2017 Inject/Drain Joint/Bursa Major W/O US Completed 07/17/2017 99477 Sleep Study Unattended,HRT Rate,Oxygen Sat,Resp Completed Effort/Airflow 07/16/2015 01483 EKG, Interpretation Only Completed 07/14/2015 21967 EKG, Interpretation Only Completed 04/02/2014 79011 Treadmill Interp/Report Only Completed 04/02/2014 99482 Stress Test Supervsn W/Out I/R Completed 02/03/2014 98260 ECHO Stress Test Incl Perf Contiuous ekg Monitoring Completed W/Phys Superv 11/25/2013 50515 ECHO Transthorasic Realtime 2D W Doppler & Color Flow Completed Hosp 11/25/2013 79872 Holter Monitor Review (24 hr)dr review & interp only Completed 11/17/2013 19496 EKG Tracing & Interpretation Completed 01/13/2011 66130 Rad Exam; Elbow, Limited Completed 01/04/2011 09882 Rad Exam; Elbow, Limited Completed 12/27/2010 83729 Closed Treatment Radial Head Or Neck FX W/O Completed Manipulation 01/13/2010 68418 Rad Exam; OS Alcis Completed 11/10/2009 08460 Xray Knee 3 Views Completed 11/10/2009 23509 Rad Exam; Knee, Ap&L Completed 11/10/2009 03491 Inject/Drain Joint/Bursa Major W/O US Completed 11/10/2009 56740046 Colonoscopy Completed 11/13/2005 88933915 Colonoscopy Completed Encounters Type Date Location Provider Dx Diagnosis Office Visit 02/01/2018 Orthopedic Kristy Evangelista, M25.562 Pain in left knee 3:15p Services Of C.M.A. M.D. M25.561 Pain in right knee M25.462 Effusion, [...] Sleep Services Of MD Jose apnea (adult) [facility] (pediatric) G47.10 Hypersomnia, unspecified E66.09 Other obesity due to excess calories Office Visit 08/09/2017 Pulmonology And Zahra G47.33 Obstructive sleep 8:00a Sleep Services Of JENIFER Webster, RN, apnea (adult) [facility]- (pediatric) G47.14 Hypersomnia due to medical condition [...] disorder, Sleep Services Of MD Jose unspecified [facility] G47.10 Hypersomnia, unspecified E66.09 Other obesity due to excess calories Z68.35 Body mass index (BMI) 35.0-35.9, adult Office Visit 08/25/2016 10:30a Orthopedic Services Kristy Evangelista, M25.561 Pain in right Of C.M.A. Tom knee M25.461 Effusion, right knee M17.31 Unilateral post-traumatic osteoarthritis, right knee S83.411A Sprain of medial collateral ligament of right knee, init Office Visit 06/09/2014 8:30a [facility] Lynn Strange, 786.05 Shortness Of PA Breath 427.0 PSVT Paroxysmal Supraventricular Tachycardia 401.1 Hypertension Benign Office Visit 04/24/2014 3:40p [facility] Qutaybeh S. 786.05 Shortness Of Tom Adler Breath 427.0 PSVT Paroxysmal Supraventricular Tachycardia 278.00 Obesity Unspec 401.0 Hypertension Malignant Office Visit 04/02/2014 8:30a [facility] Rosa Mybdiana S. 786.05 Shortness Of Tom Adler Breath 427.0 PSVT Paroxysmal Supraventricular Tachycardia 278.00 Obesity Unspec Office Visit 02/03/2014 3:30p [facility] Usman S. 786.05 Shortness Of Tom Adler Breath 401.0 Hypertension Malignant 427.0 PSVT Paroxysmal Supraventricular Tachycardia 785.0 Tachycardia Unspec Office Visit 12/25/2013 3:30p [facility] Lynn Strange, 786.05 Shortness Of PA Breath 401.0 Hypertension Malignant 427.0 PSVT Paroxysmal Supraventricular Tachycardia Office 11/17/2013 [facility] Usman S. 794.31 Electrocardiogram Visit 4:00p Lam Adler M.D. 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 Office Visit 11/10/2009 9:30a Orthopedic Roseanna Meadows, 717.9 Internal Services Of [facility]C Derangement Knee C.M.A. Unspec 715.96 Osteoarthrosis Unspec Genlzd Or Localized Lower Leg Plan of Treatment Future Appointment(s):05/15/2018 9:45 am - Kristy Evangelista M.D. at [facility] Of C.M.A.04/30/2018 8:30 am - Zahra Webster DNP, RN, HOME OFFICE REPRESENTATIVE-BC at [facility]05/02/2018 7:30 am - Kristy Evangelista M.D. at [facility] Of C.M.A.04/22/2018 - Kristy Evangelista M.D.M25.561 Pain in right kneeFollow up:Follow up: 2 weeks after yswdkulK57.461 Effusion, right kneeM17.0 Bilateral primary osteoarthritis of knee
[2018-05-02] MEDS ORDERED: celeCOXIB CAP* 100 MG ONE ×2 (07:37→07:39)
[2018-05-02] MEDS ORDERED: Midazolam* 1 MG/ML 5 ML VIAL (5 MG) ONE (07:38)
[2018-05-02] MEDS ORDERED: fentaNYL* 50 MCG/ML 2 ML VIAL (100 MCG VIAL) ONE (07:38)
[2018-05-02] MEDS ORDERED: KETAMINE HCL* 50 MG/ML 10 ML VIAL ONE (07:38)
[2018-05-02] MEDS ORDERED: Famotidine IV* 10 MG/ML 2 ML (20 mg) ONE (07:39)
[2018-05-02] MEDS ORDERED: Dexamethasone IV* 4 MG/ML 1 ML (4 MG) ONE (07:39)
[2018-05-02] MEDS ORDERED: Gabapentin CAP(*) 300 MG ONE (07:39)
[2018-05-02] MEDS ORDERED: Buffered Lidocaine 1% SYRIN* 1 ML/SYRINGE INTRADERM ONE (07:39)
[2018-05-02] MEDS ORDERED: ceFAZolin 2 GM PREMIX in ORs 2 GM/50 ML BAG IVPB ONE (07:40)
[2018-05-02] MEDS ORDERED: Ondansetron INJ* 2 MG/ML VIAL ONE (07:44)
[2018-05-02] MEDS ORDERED: ROPIVACAINE 5 MG/ML 30 ML BTL (0.5%) ONE ×2 (07:47→09:33)
[2018-05-02] MEDS ORDERED: Acetaminophen IV 1GM/100ML * 100 ML ONE (07:50)
[2018-05-02] MEDS ORDERED: Bupivacaine 0.5% SDV PF* 30ML VIAL ONE (08:25)
[2018-05-02] MEDS ORDERED: Naloxone* 0.4 MG/ML 1 ML VIAL IV PRN (09:18)
[2018-05-02] MEDS ORDERED: DiMENhydriNATE IV* 50 MG/ML VIAL IV PUSH PRN (09:18)
[2018-05-02] MEDS ORDERED: Scopolamine 1.5 mg* PATCH TRANSDERM PRN (09:18)
[2018-05-02] MEDS ORDERED: Morphine VIAL* 4 MG/ML VIAL (1 ml vial) IV PRN ×2 (09:18→10:57)
[2018-05-02] MEDS ORDERED: fentaNYL* 50 MCG/ML 2 ML VIAL (100 MCG VIAL) IV PRN (09:18)
[2018-05-02] MEDS ORDERED: Ondansetron INJ* 2 MG/ML VIAL IV PRN ×2 (09:18→10:57)
[2018-05-02] MEDS ORDERED: Polyethylene Glycol 3350* 17 GM PACKET PO PRN (10:57)
[2018-05-02] MEDS ORDERED: oxyCODONE/Acetamin 5/325 MG* TAB PO PRN (10:57)
[2018-05-02] MEDS ORDERED: Ondansetron TAB* 4 MG PO PRN (10:57)
[2018-05-02] MEDS ORDERED: Cyclobenzaprine TAB* 10 MG PO PRN (10:57)
[2018-05-02] MEDS ORDERED: Magnesium Hydroxide LIQ* 30 ML UDC PO PRN (10:57)
[2018-05-02] MEDS ORDERED: Bisacodyl SUPP* 10 MG SUPP PR PRN (10:57)
[2018-05-02] MEDS ORDERED: diPHENhydraMINE IV* 50 MG/ML 1 ml VIAL (BENADRYL) IV PRN (10:57)
[2018-05-02] MEDS ORDERED: Lactated Ringers 1000 ML Bag* 1,000 ML IV SCH (11:00)
--- NOTE | 2018-05-02 13:36 | CONS ---
CC: Dr. Kristy Evangelista; Dr. Carlos Sierra; Dr. Jesus Mauro* CONSULTATION REPORT: DATE OF CONSULT: 05/02/18 PRIMARY CARE PROVIDER: Dr. Carlos Sierra. MY ATTENDING WHILE IN THE HOSPITAL: Dr. Jesus Omer. CONSULTING PROVIDER: Dr. Kristy Evangelista. REASON FOR CONSULTATION: Comanagement of comorbid medical conditions. HISTORY OF PRESENT ILLNESS: Ms. Haskins is a 57-year-old female with past medical history significant for hypertension, sleep apnea and hypothyroidism and is currently postop from a right total knee replacement. The patient is quite sedated from anesthesia and during the physical examination she was able to wake up. The patient denies pain, but has no current feeling or movement in her lower extremities. The patient denies fevers, chills, chest pain, shortness of breath, nausea, vomiting, dizziness, or other complaints. The patient had spinal anesthesia and EBL of 250. The patient preoperatively had no urinary complaints, abdominal pain, diarrhea, fevers, chills, orthopnea, chest pain, or dyspnea on exertion. The patient last took her naproxen 5 days ago. The patient did not take her Norvasc this morning. The patient did take her clonidine this morning. The patient has no other complaints. PAST MEDICAL HISTORY: Srinivas thyroiditis with hypothyroidism, depression, hypertension, sleep apnea, and history of pyelonephritis. PAST SURGICAL HISTORY: Right knee surgery x2, colectomy, ORIF of left wrist, tubal ligation, recent right total knee arthroplasty. MEDICATIONS: 1. Naproxen 500 mg p.o. daily, 5 days ago. 2. Clonidine 0.2 mg p.o. daily. 3. Effexor 150 mg p.o. daily. 4. Estroven 1 tab p.o. daily. 5. Norvasc 10 mg p.o. daily. 6. Levothyroxine 150 mcg p.o. daily. ALLERGIES: No known drug allergies. FAMILY HISTORY: The patient's father of Alzheimer's and ischemic bowel. The patient's mother of metastatic lung cancer. SOCIAL HISTORY: The patient lives with her daughter. The patient does not smoke or use drugs and denies any alcohol. The patient works as an x-ray tech. REVIEW OF SYSTEMS: A 14-point review of systems was reviewed and is negative except as above in the HPI. PHYSICAL EXAM: General: The patient is a 57-year-old female who appears stated age, sitting comfortably in the bed, in no acute distress. Vital Signs: At the time of evaluation, temperature 97.5, pulse rate of 52, respiratory rate 16, oxygen saturation 99% on room air, blood pressure 116/81. HEENT: Head : Normocephalic, atraumatic. Sclerae anicteric. No conjunctival injection. Nasal mucosa moist. Oral mucosa moist. No pharyngeal erythema, discharge, or exudate. Neck: Supple, nontender. No lymphadenopathy. No carotid bruit auscultated. No JVD. Cardiac: Regular rate and rhythm. No clicks, murmurs, gallops, or rubs. Pulses are 2+ in the dorsalis pedis, posterior tibialis, and radial areas. Respiratory: Clear to auscultation bilaterally. No wheezes, rales, or rhonchi. Good air exchange bilaterally. Abdomen: Soft, nontender, nondistended. Bowel sounds present and normoactive in all 4 quadrants. No hepatosplenomegaly. No abdominal bruits auscultated. No hepatojugular reflux. Genitourinary: No suprapubic or CVA tenderness. Hartman in place draining clear yellow urine. Neuro: Cranial nerves II through XII intact. No sensational movement in the bilateral lower extremities due to spinal anesthesia. No other focal deficits. Skin: Right knee incision covered with bulky dressing. No other rashes or ulcers. Psychiatric: Pleasant and cooperative. DIAGNOSTIC STUDIES/LAB DATA: Preoperatively, white blood cell count 5.3, hemoglobin 12.4, platelet count 278. Sodium 138, potassium 4.4, chloride 106, carbon dioxide 25, anion gap 7, BUN 13, glucose 102, lactic acid 0.6. Bilirubin 0.5, AST 16, ALT 15, alkaline phosphatase 76. Protein 2.4, albumin 3.9, globulin 2.5. TSH 2.94. ASSESSMENT AND PLAN: Impression: Ms. Haskins is a 57-year-old female with past medical history significant for hypertension, obstructive sleep apnea, and Srinivas thyroiditis with hypothyroidism who is currently postoperative with a right total knee arthroplasty and is doing well. 1. Postoperative state management per Orthopedics. The patient to start PT/OT , bowel regimen, pain control. Patient should have fluid until she is able to take in adequate oral intake or as needed by her blood pressure. The patient should have her H and H monitored daily. The patient should have her Hartman removed as soon as possible after surgery due to history of urinary tract infections. 2. Hypertension. We will continue patient's clonidine to avoid rebound hypertension. Hold patient's Norvasc due to the spinal anesthesia. Monitor blood pressure closely. The patient is currently normotensive. 3. Obstructive sleep apnea. Continue patient's home CPAP which she has with her. 4. Hypothyroidism. Continue patient's home levothyroxine. The patient had normal TSH preoperatively. 5. Depression. Continue patient's Effexor at home dose. 6. History of pyelonephritis. The patient had a preoperative urinalysis, which was negative. 7. DVT prophylaxis: The patient will have DVT prophylaxis per Orthopedics with either Eliquis or Lovenox bridging to Coumadin. 8. FEN: The patient will have a regular unrestricted diet and fluids as above. TIME SPENT: Approximately 45 minutes was spent on this consultation, 20 of which was spent [id number] with the patient, obtaining history and physical and discussing the treatment plan. Plan was discussed with my attending, Dr. Jesus Omer, who is in agreement. BASSEM MIGUEL [id number]/CPS #: [id number] MTDJeffy
[2018-05-02] MEDS: traMADol TAB* 50 MG PO PRN (16:33)
[2018-05-02] MEDS: ceFAZolin 1 GM in Dextrose (*) 1 GM/50 ML BAG IVPB SCH (16:37)
[2018-05-02] MEDS ORDERED: ceFAZolin 1 GM ADVAN(*) 1 GM in NS 0.9% 50 ML* 50 ML IVPB SCH (17:00)
--- NOTE | 2018-05-02 17:01 | PN ---
Progress Note - Progress Note Date of Service: 05/02/18 Note: Patient seen OOB in chair, doing well. Alert and comfortable. Pain well managed. +DF right ankle. sensation intact RLE s/p RTK 05/02
[2018-05-02] MEDS: Acetaminophen TAB* 325 MG PO SCH (18:35)
[2018-05-02] MEDS: oxyCODONE TAB* 5 MG TAB PO PRN (19:55)
[2018-05-02] MEDS: Docusate CAP* 100 MG PO SCH (21:23)
[2018-05-02] MEDS: Magnesium Hydroxide LIQ* 30 ML UDC PO SCH (21:23)
--- NOTE | 2018-05-02 23:59 | OP ---
OPERATIVE REPORT: DATE OF OPERATION: 05/02/18 DATE OF : 58 ATTENDING SURGEON: Kristy Evangelista MD. DIESEL POWER SHOVEL OPERATOR: BASSEM Workman Ms. did help throughout the procedure with preparation of the leg, wound retraction, manipul ation of the knee, and wound closure. ANESTHESIOLOGIST: Dr. Pablo. ANESTHESIA: Spinal. PRE-OP DIAGNOSIS: Severe end-stage degenerative osteoarthritis of the right knee joint. POST-OP DIAGNOSIS: Severe end-stage degenerative osteoarthritis of the right knee joint. OPERATIVE PROCEDURE: Right total knee arthroplasty. TOURNIQUET TIME: 48 minutes. COMPLICATIONS: None. ESTIMATED BLOOD LOSS: 200 cc. SPECIMENS: Bone and cartilage from the right knee joint sent to Pathology. HARDWARE USED: This is [employer] total knee arthroplasty hardware. Two packages of Simplex b one cement were used. For the femur, a right size 4 narrow posterior stabilized Legion Oxinium femor al component. For the tibia, a right size 3 Bella II tibial baseplate. For the insert, an 11-mm p osterior stabilized articular insert size 3-4, and for the patella, a 29-mm 3-peg all-poly patella wi th 7.5 thickness. BRIEF HISTORY/INDICATIONS: Ms. Haskins is a 57-year-old female with years of increasingly severe ri ght knee pain. The patient's radiographs showed severe end- stage arthritis. She had [id number] c ontact. She has failed conservative treatment with antiinflammatories, pain medication, intraarticul ar injection, and physical therapy. Due to continued pain and decreased quality of life, she elected to undergo a right total knee arthroplasty. Informed consent was obtained from the patient. She un derstood the risks of surgery included but were not limited to bleeding, infection, damage to nearby structures, continued pain, need for further surgery, intraoperative fracture, nerve palsy, hardware failure or loosening, knee stiffness, loss of motion, stroke, heart attack, blood clot, and . S he wished to proceed. INTRAOPERATIVE FINDINGS: Intraoperatively, the patient was noted to have severe end-stage arthritis with complete loss of cartilage in all 3 compartments. She had extensive osteophyte formation. DESCRIPTION OF PROCEDURE: Ms. Haskins was identified in the preanesthesia unit. Her right lower ext remity was marked as the correct operative side. Informed consent was signed and placed in the chart . The patient was taken to the operating room and placed under spinal anesthesia. A Hartman catheter was placed. A tourniquet was placed on the right thigh. Right lower extremity was prepped and drape d in the usual sterile fashion. Preop time-out was made to correctly identify the patient, side, and site. Appropriate perioperative antibiotics were given within 1 hour of incision. Tourniquet was inflated and total tourniquet time for this procedure was 48 minutes. Midline incisio n was made with a 10 blade and carried down to the extensor mechanism. New 10 blade was used to make a standard medial parapatellar arthrotomy. The patella was subluxed laterally. Electrocautery was used to subperiosteally elevate the soft tissue off the superomedial tibia to the mid sagittal plane. The osteophytes were carefully removed. The knee was flexed up. The anterior horn of the lateral m eniscus and ACL were sharply released. A drill was used to enter the distal femur. Intramedullary d istal femoral cutting guide was pinned on the distal femur. Oscillating saw was used to make the dis javi femoral cuts. Next, the external rotation guide was pinned on the distal femur. The distal femur was sized to a size 4. Size 4 multi-cutting jig was pinned on the distal femur. Oscillating saw wa s used to make the appropriate 4 chamfer cuts. The PCL was completely released. Extramedullary tibial cutting guide was pinned on the proximal tibi a. The oscillating saw was used to make the proximal tibial cut perpendicular to the mechanical axis of the tibia. The bone was carefully removed. The knee was brought out into full extension. the sp acer block had good fit with the knee in full extension. Medial and lateral ligaments were well [place] nced. Flexion and extension gap was well balanced. The knee was flexed up. Lamina assistant director of plant operations was plac ed both medially and laterally. Any remaining meniscus was carefully removed using electrocautery. Curved osteotome was used to remove any posterior osteophytes. Tibial tray and drop shane were placed and once again confirmed a satisfactory tibial cut. A size 4, right narrow femoral trial was impacted onto the distal femur and had excellent fit and sta bility. The box for the posterior stabilized implant was prepared using a reamer and box-cut osteoto me. A size-3 tibial tray trial with an 11-mm insert trial was placed and the knee was taken through a range of motion. The knee had full extension to 130 degrees of flexion with satisfactory patellofem oral tracking. The patella was everted. 7 mm of patellar bone and cartilage was carefully removed using an oscillat ing saw. Three peg holes were drilled through the size 29 guide. The 29 trial patella with 7.5 thick ness was placed and the knee was taken through a range of motion. There was satisfactory patellofemo ral tracking. All trials were carefully removed. The tibia was subluxed anteriorly and sized to a size 3. Proxima l tibia was prepared using a size 3 keel punch. All bony cut surfaces were copiously irrigated with sterile saline and dried. Final implants were cemented into place starting with the tibia, followed by the femur and last the patella. An 11-mm insert trial was placed and the knee was brought out int o full extension. The tourniquet was turned down at 48 minutes. The knee was copiously irrigated with sterile saline. Electrocautery was used to obtain meticulous h emostasis. Once the cement had fully cured, the insert trial was removed. Any excess cement was rem adriana from around the capsule and hardware. Final insert chosen was an 11-mm posterior stabilized isidro cular insert size 3/4. This was locked into position on the tibial tray without difficulty. Stabilit y of the insert was checked and rechecked and noted to be stable. The extensor mechanism was closed using interrupted #1 Vicryls. The rest of the incision was closed in a layered fashion using 0 and 2-0 Vicryls. Skin was closed using running 3-0 nylon suture. Steri le Xeroform, 4x4s, and Webril were used to cover the incision. Curtis wrap and cold pack were placed ov er this. The patient's anesthesia was reversed without difficulty. She was taken to the PACU in stab le condition. Intended weightbearing will be weightbearing as tolerated. Intended DVT prophylaxis w ill be Rosannequis. [id number]/[facility] #: [id number]
[2018-05-03] MEDS: ceFAZolin 1 GM in Dextrose (*) 1 GM/50 ML BAG IVPB SCH ×2 (00:53→09:38)
[2018-05-03] MEDS: Acetaminophen TAB* 325 MG PO SCH ×2 (02:56→09:38)
[2018-05-03] MEDS: traMADol TAB* 50 MG PO PRN (03:02)
[2018-05-03] MEDS: oxyCODONE TAB* 5 MG TAB PO PRN ×2 (05:46→13:45)
[2018-05-03] MEDS ORDERED: Levothyroxine TAB* 150 MCG TAB PO SCH (06:00)
[2018-05-03 06:13] LABS: Hematocrit 33 % (35-47); Mean Platelet Volume 7.2 fL (7.4-10.4); Platelet Count 239 10^3/ul (150-450)
[2018-05-03 06:32] LABS: BUN/Creatinine Ratio 19.2 (8-20); Calcium 8.7 mg/dL (8.6-10.3); EGFR African American 99.1 (>60); EGFR Non-African American 81.9 (>60); Potassium 3.9 mmol/L (3.5-5.0)
[2018-05-03] MEDS: Magnesium Hydroxide LIQ* 30 ML UDC PO SCH (07:36)
[2018-05-03] MEDS: oxyCODONE/Acetamin 5/325 MG* TAB PO PRN ×3 (07:36→16:02)
[2018-05-03] MEDS: Docusate CAP* 100 MG PO SCH (07:36)
[2018-05-03] MEDS ORDERED: amLODIPine TAB* 5 MG PO SCH (09:00)
[2018-05-03] MEDS ORDERED: Venlafaxine EXT RELEASE CAP* 75 MG PO SCH (09:00)
[2018-05-03] MEDS ORDERED: cloNIDine TAB* 0.1 MG PO SCH (09:00)
[2018-05-03] MEDS ORDERED: Apixaban* 2.5 MG TAB PO SCH (09:00)
[2018-05-03] MEDS: Gabapentin CAP(*) 100 MG PO SCH ×2 (09:58→14:52)
[2018-05-03 11:57] VITALS: BP 145/82
--- NOTE | 2018-05-03 13:20 | PN ---
Progress Note - Progress Note Date of Service: 05/03/18 SOAP: Subjective: []Patient tired but feels that she would like to go home later this afternoon after therapy. She denies SOB, CP, palpitations or dizziness. Objective: [] Vital Signs Temp 97.9 F 05/03/18 11:45 Pulse 64 05/03/18 11:45 Resp 18 05/03/18 11:50 BP 145/82 05/03/18 11:45 Pulse Ox 97 05/03/18 11:45 Intake & Output 05/02/18 05/03/18 05/03/18 18:59 06:59 18:59 Intake Total 2210 1726 Output Total 1400 1750 Balance 810 -24 Weight 201 lb 6.4 oz Intake: IV Fluids 1850 776 LR 1800 776 NS 50ML, Cefazolin 2G 50 IVPB 50 ABX - CEFAZOLIN 50 Oral 360 900 Output: Urine 1100 Hartman 1400 650 Laboratory Results - last 24 hr 05/03/18 05/03/18 06:04 06:04 Hgb 11.0 L Hct 33 L Plt Count 239 MPV 7.2 L Sodium 138 Potassium 3.9 Chloride 105 Carbon Dioxide 26 Anion Gap 7 BUN 14 Creatinine 0.73 Est GFR ( Amer) 99.1 Est GFR (Non-Af Amer) 81.9 BUN/Creatinine Ratio 19.2 Glucose 130 H Calcium 8.7 right knee dressings are dry and intact calf NT sensation and circulation are intact +DF right ankle Assessment: []s/p Right total knee arthroplasty POD #1 Plan: []PT this afternoon Eliquis 2.5 BID for DVT prophylaxis Home this afternoon after PT Change dressing before discharge Follow up 10-[address] Evangelista
--- NOTE | 2018-05-03 13:57 | PN ---
Subjective Date of Service: 05/03/18 Interval History: Pt seen and examined. Meds and labs reviewed. CC: 07/05 post op pain ROS: Denied YAO/dizziness, F/C, N/V, CP, SOB, increased cough, sputum production , abd pain, diarrhea, constipation, dysuria, throat pain, and new skin lesions. The rest of the 14 point ROS are unremarkable. PHYSICAL EXAM: GEN APPEARANCE: Awake, not in acute distress HEENT: NC/AT, PERRLA, moist oral mucosa, (-) throat erythema NECK: Soft, supple, (-) cervical LAD, (-)JVD HEART: S1S2 WNL, RRR, No MRG CHEST: CTA, BL, GAE, No W/R/R ABD: Soft, ND/NT, NABS 4x Q EXT: No C/C/E SKIN: Warm to touch PSYCH: No active psychosis, hallucinations, depression, SI/HI Objective Active Medications: Acetaminophen (Tylenol Tab*) 975 mg PO Q8H [facility] Last Admin: 05/03/18 09:38 Dose: Not Given Apixaban (Eliquis*) 2.5 mg PO BID [facility] Last Admin: 05/03/18 07:36 Dose: 2.5 mg Bisacodyl (Dulcolax Supp*) 10 mg [place] DAILY PRN PRN Reason: constipation Clonidine HCl (Catapres Tab*) 0.2 mg PO QAM [facility] Last Admin: 05/03/18 07:36 Dose: 0.2 mg Cyclobenzaprine HCl (Flexeril Tab*) 10 mg PO TID PRN PRN Reason: SPASMS Diphenhydramine HCl (Benadryl Iv*) 12.5 mg IV Q6H PRN PRN Reason: PRURITIS Docusate Sodium (Colace Cap*) 100 mg PO BID [facility] Last Admin: 05/03/18 07:36 Dose: 100 mg Gabapentin (Neurontin Cap(*)) 200 mg PO TID [facility] Last Admin: 05/03/18 09:58 Dose: 200 mg Lactated Ringer's (Lactated Ringers 1000 Ml Bag*) 1,000 mls @ 100 mls/hr IV PER RATE [facility] Last Admin: 05/02/18 14:32 Dose: 100 mls/hr Lactulose (Lactulose*) 30 ml PO Q6H PRN PRN Reason: constipation Levothyroxine Sodium (Synthroid Tab*) 150 mcg PO 0600 [facility] Last Admin: 05/03/18 05:46 Dose: 150 mcg Magnesium Hydroxide (Milk Of Magnesia Liq*) 30 ml PO BID [facility] Last Admin: 05/03/18 07:36 Dose: 30 ml Magnesium Hydroxide (Milk Of Magnesia Liq*) 30 ml PO Q6H PRN PRN Reason: constipation Morphine Sulfate (Morphine Vial*) 2 mg IV Q2H PRN PRN Reason: PAIN Ondansetron HCl (Zofran Inj*) 4 mg IV Q6H PRN PRN Reason: nausea Ondansetron HCl (Zofran Tab*) 4 mg PO Q6H PRN PRN Reason: NAUSEA Oxycodone HCl (Roxycodone Tab*) 10 mg PO Q4H PRN PRN Reason: SEVERE PAIN Last Admin: 05/03/18 13:45 Dose: 10 mg Oxycodone/Acetaminophen (Percocet 5/325 Tab*) 1 tab PO Q4H PRN PRN Reason: PAIN Oxycodone/Acetaminophen (Percocet 5/325 Tab*) 2 tab PO Q4H PRN PRN Reason: PAIN Last Admin: 05/03/18 11:50 Dose: 2 tab Polyethylene Glycol/Electrolytes (Miralax*) 17 gm PO DAILY PRN PRN Reason: Constipation Scopolamine (Transderm-Scop 1.5 Mg Patch*) 1 patch TRANSDERM Q72H PRN PRN Reason: Nausea/Vomiting Tramadol HCl (Ultram*) 50 mg PO Q6H PRN PRN Reason: PAIN Last Admin: 05/03/18 03:02 Dose: 50 mg Venlafaxine HCl (Effexor Xr Cap*) 150 mg PO QAM [facility] Last Admin: 05/03/18 07:36 Dose: 150 mg Vital Signs - 8 hr 05/03/18 05/03/18 05/03/18 07:36 07:57 08:00 Temperature 99.0 F Pulse Rate 60 Respiratory 18 18 18 Rate Blood Pressure 129/76 (mmHg) O2 Sat by Pulse 96 96 Oximetry 05/03/18 05/03/18 05/03/18 09:58 11:45 11:50 Temperature 97.9 F Pulse Rate 64 Respiratory 18 18 18 Rate Blood Pressure 145/82 (mmHg) O2 Sat by Pulse 97 Oximetry 05/03/18 13:45 Temperature Pulse Rate Respiratory 18 Rate Blood Pressure (mmHg) O2 Sat by Pulse Oximetry Oxygen Devices in Use Now: None Result Diagrams: 05/03/18 06:04 05/03/18 06:04 Assess/Plan/Problems-Billing Assessment: - Patient Problems (1) S/P total knee arthroplasty Current Visit: Yes Status: Acute Code(s): Z96.659 - PRESENCE OF UNSPECIFIED ARTIFICIAL KNEE JOINT SNOMED Code(s): 2264140116248 Comment: -Right -POD #1 -Defer w/ortho (2) Post-op pain Current Visit: Yes Status: Acute Code(s): G89.18 - OTHER ACUTE POSTPROCEDURAL PAIN SNOMED Code(s): 337181980 Comment: -Continue current regimen -Placed pt on low dose Gabapentin for synergy/adjuvant therapy (3) JORDY (obstructive sleep apnea) Current Visit: Yes Status: Acute Code(s): G47.33 - OBSTRUCTIVE SLEEP APNEA ( ADULT) (PEDIATRIC) SNOMED Code(s): 51792573 Comment: -Continue home CPAP (4) Hypothyroidism Current Visit: Yes Status: Acute Code(s): E03.9 - HYPOTHYROIDISM, UNSPECIFIED SNOMED Code(s): 02502842 Comment: -Continue Levothyroxine (5) DVT prophylaxis Current Visit: Yes Status: Acute Code(s): IMX9863 - SNOMED Code(s): 524668643 Comment: -Continue Eliquis Status and Disposition: -Defer w/Ortho -Will S/O from pts case given pt hemodynamically stable; will
--- NOTE | 2018-05-03 22:33 | DS ---
DISCHARGE SUMMARY: DATE OF ADMISSION: 05/02/18 DATE OF DISCHARGE: 05/03/18 ATTENDING PHYSICIAN: Dr. Kristy Evangelista.* (DICTATED BY BASSEM DOW) ADMISSION DIAGNOSIS: Severe end-stage degenerative osteoarthritis, right knee joint. DISCHARGE DIAGNOSIS: Severe end-stage degenerative osteoarthritis, right knee joint. SURGERY PERFORMED: Right total knee arthroplasty. HOSPITAL COURSE: The patient is a 57-year-old female with increasingly severe right knee pain. Her x-rays revealed severe end-stage degenerative arthritis. She had failed conservative management with antiinflammatories, pain medications , intraarticular cortisone injections and physical therapy. Due to increased pain and decreased quality of life, she elected to proceed with right total knee arthroplasty. She was taken to the operating room under the care of Dr. Kristy Evangelista on the date of 05/02/18. She tolerated the procedure well and left the operating room in stable condition. Postoperatively, she progressed satisfactorily with the physical therapy and occupational therapy goals, bearing weight as tolerated on the right lower extremity. She had no postoperative complications and was found to be stable for discharge to home on the date of 05/03/18. CONDITION ON DISCHARGE: Temperature 97.9, pulse 64, respiratory rate 18, O2 sats 97% on room air, blood pressure 145/82. Her knee incision was benign. Her calf was nontender and soft. She had active dorsiflexion of the right ankle without pain. PLAN: Discharge to home bearing weight as tolerated on the right lower extremity. She will be discharged home on Percocet 1 to 2 tablets every 4 to 6 hours as needed for pain, #70 with an MDD of 10. She is also provided with Eliquis 2.5 mg p.o. b.i.d. for DVT prophylaxis for 30 days postoperatively. She was given a prescription as well for Flexeril 10 mg p.o. t.i.d. p.r.n. muscle spasm. She will follow up in the office as scheduled in 10 to [address] Evangelista. All questions were answered. BASSEM DOW [id number]/[facility] #: [id number] [facility]
== END 2018-05-03 16:46 | disposition home health service (06) | DRG 302 ==
LOC: AA 06:44 → SSU 14:30
PROVIDERS: ADMIT Orthopaedic Surgery Adult Reconstructive Orthopaedic Surgery; ATTEND Orthopaedic Surgery Adult Reconstructive Orthopaedic Surgery
PROC: 0SRC069 Replacement of Right Knee Joint with Oxidized Zirconium on Polyethylene Synthetic Substitute, Cemented, Open Approach (ICD-10-PCS; principal; 2018-05-02 08:15)
DX: M17.0 Bilateral primary osteoarthritis of knee (principal); E06.3 Autoimmune thyroiditis; F32.9 Major depressive disorder, single episode, unspecified; I10 Essential (primary) hypertension; M25.761 Osteophyte, right knee; M25.461 Effusion, right knee; G47.33 Obstructive sleep apnea (adult) (pediatric); K44.9 Diaphragmatic hernia without obstruction or gangrene; Z90.49 Acquired absence of other specified parts of digestive tract; Z98.51 Tubal ligation status; Z82.49 Family history of ischemic heart disease and other diseases of the circulatory system; Z80.1 Family history of malignant neoplasm of trachea, bronchus and lung; Z82.0 Family history of epilepsy and other diseases of the nervous system; Z79.01 Long term (current) use of anticoagulants
CPT/HCPCS: 36415; 80048; 85014; 85018; 85049; 88305; 88311; A9270-GY; C1776; J0690; J1100; J2250; J2405; J2795; J3010

== ENCOUNTER 2018-07-05 14:52 | Emergency (ER) | payer BC ==
--- OUTSIDE RECORDS SUMMARY | 2018-07-05 14:57 | XMS REPORT | Continuity of Care Document ---
:1960 External Reference #:[id number] Author Name Shana Estrada Care Team Providers Name Role Phone Carlos Sierra MD Primary Care Physician Unavailable Payers Date Identification Numbers Payment Provider Subscriber Effective: 2013 Policy Number: [id number] [employer] Becky Haskins PayID: [id number] [address] [place] [address] Advance Directives Description No Information Available Problems Active Problems Provider Date Electrocardiogram abnormal Usman Adler M.D. Onset: 11/17/2013 Malignant essential hypertension Usman Adler M.D. Onset: 2013 Dyspnea Usman Adler M.D. Onset: 11/17/2013 Paroxysmal supraventricular Usman Adler M.D. Onset: 11/17/2013 tachycardia Edema Usman Adler M.D. Onset: 11/17/2013 Localized, secondary osteoarthritis Kristy Evangelista M.D. Onset: 08/25/2016 Localized, primary osteoarthritis Kristy Evangelista M.D. Onset: 07/25/2017 Obstructive sleep apnea syndrome Zahra Webster DNP, RN, Onset: 08/09/2017 [facility]- Hypersomnia Zahra Webster DNP, RN, Onset: 08/09/2017 [employer] [facility] Arthroplasty of knee Kristy Evangelista M.D. Onset: 06/03/2018 Family History Date Family Member(s) Observation Comments Father Twisted Bowels Father due to Alzheimer's Disease () Father Alzheimer's Disease Mother Lung Cancer Mother due to Lung Cancer () Mother Liver Cancer Mother due to Liver Cancer () Mother Heavey smoker for 40 years Siblings 5 1 and 4 living Social History Type Date Description Comments Sex Unknown Marital Status Lives With Son and his girlfriend Occupation [employer] Tobacco Use Start: Unknown Never Smoked Cigarettes Smoking Status Reviewed: 06/28/18 Never Smoked Cigarettes ETOH Use Denies alcohol use Tobacco Use Start: Unknown Patient has never smoked Recreational Drug Use Denies Drug Use Exercise Type/Frequency Exercises rarely Allergies, Adverse Reactions, Alerts Description No Known Drug Allergies Medications Active Medications SIG Qnty Indications Ordering Provider Date Percocet 1 tabs by 70tabs Kristy Evangelista, 05/03/2018 5-325mg Tablets mouth every 4-6 M.D. hours as needed pain Naproxen 1 tablet with 90tabs M25.562 Kristy Evangelista, 11/02/2017 500mg Tablets food by mouth M.DHilario twice a day Clonidine HCL 1 by mouth once 60tabs Sterlingtaad S. 04/24/2014 0.2mg Tablets a day Tom Adler Effexor XR 1 by mouth 90caps Usman S. 11/17/2013 150mg Caps ER every day Tom Adler 24HR Estroven Maximum 1 tab daily Usman S. 11/17/2013 Strength Tom Adler Tablets Norvasc 1 by mouth 30tabs Unknown 10mg Tablets every day Levothyroxine Sodium 1 by mouth 30tabs Unknown 150mcg every day Tablets History Medications Clonidine HCL 1 by mouth bid 90tabs Usman S. 11/17/2013 - 0.1mg Tom Adler 04/24/2014 Tablets Vitamin D High 1 by mouth every Qutaybeh S. 11/17/2013 - Potency day Tom Adler 04/21/2018 2000Units Capsules Milk Of Magnesia 30 milliliters oral 3000ml Sterlingtaad S. 11/17/2013 - 7.75% 2x day Tom Adler 07/10/2017 Suspension Vesicare 1 po daily 30tabs Qutaybdiana S. 11/17/2013 - 5mg Tablets Tom Adler 07/10/2017 Orphenadrine Citrate 1 po bid prn for Unknown - ER spasm 11/16/2013 100mg Tablets ER 12HR Prednisone 2 bid x 3days, then 30tabs Unknown - 10mg Tablets 2 am, 1pm x3days 11/16/2013 then 1 bid x3days then 1 qd x3 days Fluoxetine HCL 3 by mouth every 90caps Unknown - 20mg day 11/16/2013 Capsules Oxybutynin Chloride 1 by mouth every 90tabs Unknown - ER day 11/16/2013 15mg Tablets ER 24HR Valacyclovir HCL take 1 po qd 60tabs Unknown - 500mg 06/16/2013 Tablets Naproxen 1 tablet with food 40tabs Unknown - 500mg Tablets by mouth once a day 11/02/2017 prn 12/25/13 - pt only takes once a day Clonidine HCL 1 po q bedtime 30tabs Unknown - 0.1mg 11/17/2013 Tablets Prilosec 1 by mouth every 90caps Unknown - 20mg Capsules day 07/10/2017 DR Medications Administered in Office Medication SIG Qnty Indications Ordering Provider Date Depomedrol 40MG Kristy Evangelista M.D. 02/01/2018 Injection Depomedrol 40MG Kristy Evangelista M.D. 02/01/2018 Injection Depomedrol 40MG Kristy Evangelista M.D. 11/02/2017 Injection Depomedrol 40MG Kristy Evangelista M.D. 11/02/2017 Injection Depomedrol 40MG SHELBY Knott 11/10/2009 Injection Immunizations Description No Information Available Vital Signs Date Vital Result Comment 06/28/2018 10:49am Height 64 inches 5'4" Weight 198.00 lb Heart Rate 70 /min BP Systolic 118 mmHg BP Diastolic 82 mmHg Pain Level 1 BMI (Body Mass Index) 34.0 kg/m2 06/03/2018 1:59pm Height 64 inches 5'4" Heart Rate 88 /min BP Systolic 122 mmHg BP Diastolic 76 mmHg Respiratory Rate 16 /min Body Temperature 98.8 F Pain Level 2 05/15/2018 10:09am Height 64 inches 5'4" Weight 202.00 lb Heart Rate 72 /min BP Systolic 120 mmHg BP Diastolic 72 mmHg Respiratory Rate 16 /min Body Temperature 99.3 F Pain Level 4 BMI (Body Mass Index) 34.7 kg/m2 04/30/2018 8:13am Height 64 inches 5'4" Weight [...] Result H/L Range Note Laboratory test 04/22/2018 [facility] TSH 2.94 mcIU/mL N 0.34- 5.[address] ([place] [address] Nytj Acwz) [phone] CBC Auto Diff 04/22/2018 [facility] White Blood 5.3 10^3/uL N 3.5-10.[address] [place] [address] [phone] Red Blood Count 4.05 10^6/uL N 4.00-5.40 [...] Blood Cells % 0 Comp Metabolic Panel 04/22/2018 [facility] Sodium 138 mmol/L N 135-145 [address] [place] [address] [phone] Potassium 4.4 mmol/L N 3.5-5.0 Chloride 106 [...] Non- 81.9 >60 Egfr 99.1 >60 1 Inr/Protime 04/22/2018 [facility] Inr 0.79 N 0.77-1.[address] [place] [address] [phone] Laboratory test 04/22/2018 [facility] Partial 25.6 seconds Low 26.0-36.[address] [place] [address] Time PTT [phone] Type & Screen 04/22/2018 [facility] Patient O Positive [address] [place] [address] [phone] Antibody Screen NEGATIVE Laboratory test 11/18/2013 [facility] B Type Natriuretic 22 pg/ mL N [address] [place] [address] [phone] C Reactive Protein < 0.10 mg/L N < 5.00 3 Erythrocyte Sed Rate 17 mm/Hr N 0-30 Comp Metabolic Panel 11/18/2013 [facility] Sodium 135 mmol/L N 133-[address] [place] [address] [phone] Potassium 4.4 mmol/L N 3.7-5.6 Chloride 105 [...] 64.4 N >60 Egfr 82.8 N >60 4 1 Because ethnic data is not always [...] CHF [place] [facility] 3 Acute inflammation: >10.00 4 Because ethnic data is not always readily [...] 15-29 5 Kidney failure <15 (or dialysis) Procedures Date Code Description Status 05/02/2018 51785 TKR Total Knee Replacement Completed 05/02/2018 84413 TKR Total Knee Replacement Completed 02/01/201848702 Inject/Drain Joint/Bursa Major W/O US Completed 11/02/201754043 Inject/Drain Joint/Bursa Major W/O US Completed 07/17/2017 95255 Sleep Study Unattended,HRT Rate,Oxygen Sat,Resp Completed Effort/Airflow 07/16/2015 57552 EKG, Interpretation Only Completed 07/14/2015 82566 EKG, Interpretation Only Completed 04/02/2014 62872 Treadmill Interp/Report Only Completed 04/02/2014 56539 Stress Test Supervsn W/Out I/R Completed 02/03/2014 95837 ECHO Stress Test Incl Perf Contiuous ekg Monitoring Completed W/Phys Superv 11/25/2013 66819 Holter Monitor Review (24 hr)dr weldon & patti only Completed 11/25/2013 10548 ECHO Transthorasic Realtime 2D W Doppler & Color Flow Completed Hosp 11/17/2013 64270 EKG Tracing & Interpretation Completed 01/13/2011 35455 Rad Exam; Elbow, Limited Completed 01/04/2011 65853 Rad Exam; Elbow, Limited Completed 12/27/2010 96392 Closed Treatment Radial Head Or Neck FX W/O Completed Manipulation 01/13/2010 89591 Rad Exam; OS Alcis Completed 11/10/2009 73958 Xray Knee 3 Views Completed 11/10/2009 76787 Rad Exam; Knee, Ap&L Completed 11/10/2009 56695 Inject/Drain Joint/Bursa Major W/O US Completed 11/10/2009 02148485 Colonoscopy Completed 11/13/2005 00500736 Colonoscopy Completed Encounters Type Date Location Provider Dx Diagnosis Office Visit 05/03/2018 [facility] Jesus Jackson G89.18 Other acute 9:13a Assoclesa MD postprocedural pain Hospitalists Z96.659 Presence of unspecified artificial knee joint G47.33 Obstructive sleep apnea (adult) (pediatric) E03.9 Hypothyroidism, unspecified Office Visit 05/02/2018 9:12a [facility] Chalino Z96.651 Presence of Asslesa faye PA right artificial Hospitalists knee joint G47.33 Obstructive sleep apnea (adult) (pediatric) E03.9 Hypothyroidism, unspecified Office Visit 04/30/2018 [facility] G47.33 Obstructive sleep 8:30a [facility] Berrios apnea (adult) [employer] (pediatric) G47.10 Hypersomnia, unspecified Z68.34 Body mass index (BMI) 34.0-34.9, adult Office Visit 02/01/2018 3:15p [facility] Kristy Evangelista, M25.562 Pain in left Of C.M.A. M.D. knee M25.561 Pain in right knee M25.462 Effusion, left knee M25.461 Effusion, right knee M17.0 Bilateral primary osteoarthritis of knee Office Visit 11/02/2017 3:00p [facility] Kristyashleigh Evangelista, M25.562 Pain in left Of C.M.A. M.D. knee M25.561 Pain in right knee M25.462 Effusion, left knee M25.461 Effusion, right knee M17.0 Bilateral primary osteoarthritis of knee Office Visit 10/16/2017 8:15a [facility] G47.33 Obstructive sleep [facility] MD Jose apnea (adult) [facility] (pediatric) G47.10 Hypersomnia, unspecified E66.09 Other obesity due to excess calories Office Visit 08/09/2017 [facility] Zahra G47.33 Obstructive sleep 8:00a [facility] JENIFER Webster, RN, apnea (adult) [facility] [employer] SERVICE ASSOCIATE-BC (pediatric) G47.14 Hypersomnia due to medical condition [...] disorder, [facility] MD Jose unspecified [facility] G47.10 Hypersomnia, unspecified E66.09 Other obesity due to excess calories Z68.35 Body mass index (BMI) 35.0-35.9, adult Office Visit 08/25/2016 10:30a [facility] Kristy Evangelista, M25.561 Pain in right Of C.M.A. M.D. knee M25.461 Effusion, right knee M17.31 Unilateral post-traumatic osteoarthritis, right knee S83.411A Sprain of medial collateral ligament of right knee, init Office Visit 06/09/2014 8:30a [facility] Lynn Strange, 786.05 Shortness Of PA Breath 427.0 PSVT Paroxysmal Supraventricular Tachycardia 401.1 Hypertension Benign Office Visit 04/24/2014 3:40p [facility] Usman Castano 786.05 Adam M.D. Breath 427.0 PSVT Paroxysmal Supraventricular Tachycardia 278.00 Obesity Unspec 401.0 Hypertension Malignant Office Visit 04/02/2014 8:30a [facility] Rosa Mybdiana S. 786.05 Shortness Of Tom Adler Breath 427.0 PSVT Paroxysmal Supraventricular Tachycardia 278.00 Obesity Unspec Office Visit 02/03/2014 3:30p [facility] Usman S. 786.05 Shortness Of Tom Adler Breath 401.0 Hypertension Malignant 427.0 PSVT Paroxysmal Supraventricular Tachycardia 785.0 Tachycardia Unspec Office Visit 12/25/2013 3:30p [facility] Lynn Strange, 786.05 Shortness Of PA Breath 401.0 Hypertension Malignant 427.0 PSVT Paroxysmal Supraventricular Tachycardia Office 11/17/2013 [place] Qucharli S. 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 Office Visit 11/10/2009 9:30a Orthopedic Roseanna Meadows, 717.9 Internal Services Of [facility] Derangement Knee C.M.A. Unspec 715.96 Osteoarthrosis Unspec Genlzd Or Localized Lower Leg Plan of Treatment 06/28/2018 - Kristy Evangelista M.D.M25.561 Pain in right kneeFollow up:Follow up: 1 yearZ96.651 Presence of right artificial knee [id number] Aftercare following joint replacement surgery
[2018-07-05 15:08] VITALS: BP 119/70
--- NOTE | 2018-07-05 15:49 | UC ---
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 no UTI symptoms - History of Current Complaint Chief Complaint: UCAbdominalPain Stated Complaint: ABD PAIN Time Seen by Provider: 07/05/18 15:17 Hx Obtained From: Patient Hx Last Menstrual Period: n/a Onset/Duration: Gradual Onset, Lasting Hours Timing: Constant Severity Initially: Moderate Severity Currently: Mild Pain Intensity: 4 Pain Scale Used: 0-10 Numeric Location: Diffuse - lower Radiates: No Character: Aching, Dull Aggravating Factor(s): Movement Alleviating Factor(s): Nothing Associated Signs and Symptoms: Negative: Diaphoresis, Fever, Cough, Chest Pain, Dizzy, Back Pain, Constipation, Blood in Stool, Urinary Symptoms, Decreased Appetite, Vaginal Bleeding, Vaginal Discharge, Nausea, Vomiting Allergies/Adverse Reactions: Allergies Allergy/AdvReac Type Severity Reaction Status Date / Time No Known Allergies Allergy Verified 07/05/18 15:08 Home Medications: Home Medications Ibuprofen TAB* [Motrin TAB* 400 MG] 400 mg PO Q6HR PRN 07/05/18 [History Confirmed 07/05/18] PMH/Surg Hx/FS Hx/Imm Hx Previously Healthy: Yes Cardiovascular History: Hypertension - Surgical History Surgical History: Yes Surgery Procedure, Year, and Place: tubal ligation. COLECTOMY. RIGHT ACL. LEFT WRIST - Family History Known Family History: Positive: Other - alzheimers, volvulus Negative: Hypertension, Respiratory Disease - Social History Alcohol Use: None Substance Use Type: None Smoking Status (MU): Never Smoked Tobacco Have You Smoked in the Last Year: No Household Exposure Type: Cigarettes - Immunization History Most Recent Influenza Vaccination: 2017 Most Recent Tetanus Shot: 2013 Most Recent Pneumonia Vaccination: Never Review of Systems All Other Systems Reviewed And Are Negative: Yes Constitutional: Positive: Negative Skin: Positive: Negative Eyes: Positive: Negative ENT: Positive: Negative Respiratory: Positive: Negative Cardiovascular: Positive: Negative Gastrointestinal: Positive: Abdominal Pain Genitourinary: Positive: Negative Motor: Positive: Negative Neurovascular: Positive: Negative Musculoskeletal: Positive: Negative Neurological: Positive: Negative Psychological: Positive: Negative Physical Exam Triage Information Reviewed: Yes Appearance: Well-Appearing, No Pain Distress, Well-Nourished Vital Signs: Initial Vital Signs Temp 98.7 F 07/05/18 15:03 Pulse 72 07/05/18 15:03 Resp 16 07/05/18 15:03 BP 119/70 07/05/18 15:03 Pulse Ox 100 07/05/18 15:03 Vital Signs Reviewed: Yes Eyes: Positive: Conjunctiva Clear ENT: Positive: Hearing grossly normal. Negative: Nasal congestion, Nasal drainage, Trismus, Muffled voice, Hoarse voice Neck: Positive: Supple, Nontender, No Lymphadenopathy Respiratory: Positive: Lungs clear, Normal breath sounds, No respiratory distress Cardiovascular: Positive: RRR, No Murmur Abdomen Description: Negative: Nontender - diffusely tender, most tender LLQ>LUQ Bowel Sounds: Positive: Present Musculoskeletal: Positive: ROM Intact, No Edema Neurological: Positive: Alert Psychological Exam: Normal Skin Exam: Normal Diagnostics - Laboratory Lab Results: urine -tr leuks Abd Pain Female Course/Dx - Differential Dx/Diagnosis Provider Diagnosis: Left sided abdominal pain of unknown cause Discharge - Sign-Out/Discharge Documenting (check all that apply): Patient Departure All imaging exams completed and their final reports reviewed: No Studies - Discharge Plan Condition: Stable Disposition: HOME-RECOMMEND TO ED Referrals: Carlos Sierra MD [Primary Care Provider] - Additional Instructions: I spoke to Dr. Kiran and he suggested you have a CT of abd and pelvis with contrast due to your unusual anatomy I suggest you go to the ER from here for further investigation of your symptoms - Billing Disposition and Condition Condition: STABLE Disposition: Home-Recommend to ED
== END 2018-07-05 15:54 | disposition home health service (06) ==
LOC: UCEAST 14:52
DX: R10.32 Left lower quadrant pain (principal); I10 Essential (primary) hypertension; Z81.8 Family history of other mental and behavioral disorders
CPT/HCPCS: 81003; 87086; 99212; G0463

== ENCOUNTER → 2018-07-05 16:21 | Emergency (ER) | payer BC ==
[~2018-07-05 16:21] MED LIST changes: -Acetaminophen IV 1GM/100ML * 1,000 MG/100 ML VIAL IVPB ONE; -Buffered Lidocaine 1% SYRIN* 1 ML/SYRINGE INTRADERM ONE; -Dexamethasone IV* 4 MG/ML 1 ML (4 MG) IV SLOW PU ONE; -Famotidine IV* 10 MG/ML 2 ML (20 mg) IV ONE; -Gabapentin CAP(*) 300 MG PO ONE; +Iohexol 300* (CONTRAST) 10 ML SDV IV ONE; -Lactated Ringers 1000 ML Bag* 1,000 ML IV SCH; -Tranexamic Acid 1,000 MG in NS 0.9% 50 ML* (outpatient use) IV SCH; -celeCOXIB CAP* 200 MG PO ONE
[2018-07-05 17:39] LABS: ABS Eosinophils 0.2 10^3/ul (0-0.6); ABS Lymphocytes 1.4 10^3/ul (1.0-4.8); ABS Monocytes 0.4 10^3/ul (0-0.8); ABS Neutrophils 4.4 10^3/ul (1.5-7.7); Eosinophil % 2.7 %; Hematocrit 36 % (35-47); Hemoglobin 11.9 g/dL (12.0-16.0); Lymphocyte % 21.8 %; Mean Corpuscular HGB Conc 33 g/dL (31-36); Mean Corpuscular Hemoglobin 30 pg (27-31); Mean Corpuscular Volume 89 fL (80-97); Mean Platelet Volume 7.4 fL (7.4-10.4); Platelet Count 312 10^3/uL (150-450); Red Blood Count 3.99 10^6 /uL (3.70-4.87); Red Cell Distribution Width 13 % (10.5-15); White Blood Count 6.5 10^3/uL (3.5-10.8)
[2018-07-05 17:54] LABS: Albumin 4.1 g/dL (3.2-5.2); Albumin/Globulin Ratio 1.5 (1-3); BUN/Creatinine Ratio 16.5 (8-20); C Reactive Protein 2.75 mg/L (<8.01); Calcium 9.7 mg/dL (8.6-10.3); EGFR African American 83.1 (>60); EGFR Non-African American 68.7 (>60); Globulin 2.7 g/dL (2-4); Potassium 4.4 mmol/L (3.5-5.0); Total Bilirubin 0.3 mg/dL (0.2-1.0); Total Protein 6.8 g/dL (6.4-8.9)
--- NOTE | 2018-07-05 18:06 | ED ---
Abdominal Pain/Female - HPI Summary HPI Summary: This patient is a 57 year old F presenting to ED with a chief complaint of lower abdominal pain since last night. The pain has now also moved upwards and is diffuse in the abdomen. It is non-radiating from the abdomen. The patient rates the pain 4/10 in severity. Symptoms aggravated by nothing. Symptoms alleviated by nothing. Patient reports diarrhea (yesterday) and CP (this morning while driving to work, now resolved). Patient denies N/V. - History of Current Complaint Chief Complaint: EDAbdPain Stated Complaint: LOWER ABD PAIN PER PT Time Seen by Provider: 07/05/18 17:45 Hx Obtained From: Patient Hx Last Menstrual Period: n/a Onset/Duration: Sudden Onset, Lasting Hours, Still Present Timing: Constant Severity Initially: Moderate Severity Currently: Moderate Pain Intensity: 4 Pain Scale Used: 0-10 Numeric Location: Diffuse - but started as lower abdominal pain Radiates: No Aggravating Factor(s): Nothing Alleviating Factor(s): Nothing Associated Signs and Symptoms: Positive: Chest Pain - now resolved, Diarrhea. Negative: Nausea, Vomiting Allergies/Adverse Reactions: Allergies Allergy/AdvReac Type Severity Reaction Status Date / Time No Known Allergies Allergy Verified 07/05/18 16:43 PMH/Surg Hx/FS Hx/Imm Hx Endocrine/Hematology History: Reports: Hx Blood Transfusions - 32 years ago, Hx Thyroid Disease - justin, Hx Anemia - BORDERLINE PER PT Denies: Hx Diabetes Cardiovascular History: Reports: Hx Hypertension - 2 meds, Other Cardiovascular Problems/Disorders - EPISODE OF TACHYCARDIA X1 2013, NEGATIVE WORKUP Denies: Hx Congestive Heart Failure, Hx Pacemaker/ICD Respiratory History: Reports: Hx Sleep Apnea Denies: Hx Asthma, Hx Chronic Obstructive Pulmonary Disease (COPD), Other Respiratory Problems/Disorders GI History: Reports: Hx Gastroesophageal Reflux Disease - ON MEDS, Hx Hiatal Hernia, Other GI Disorders - CHRONIC CONSTIPATION Denies: Hx Gastrointestinal Bleed, Hx Jaundice, Hx Ileostomy, Hx Ulcer History: Reports: Hx Kidney Infection Denies: Hx Acute Renal Failure, Hx Renal Disease Musculoskeletal History: Reports: Hx Arthritis - OSTEO, Hx Back Problems, Hx Scoliosis, Other Musculoskeletal History - SCOLIOSIS Sensory History: Reports: Hx Contacts or Glasses - GLASSES, Hx Eye Injury Denies: Hx Cataracts, Hx Glaucoma, Hx Legally Blind, Hx Vision Problem, Hx Deafness, Hx Hearing Aid, Hx Hearing Problem Opthamlomology History: Reports: Hx Contacts or Glasses - GLASSES, Hx Eye Injury Denies: Hx Cataracts, Hx Glaucoma, Hx Legally Blind, Hx Vision Problem Neurological History: Reports: Hx Headaches Denies: Hx Seizures, Hx Spinal Cord Injury, Other Neuro Impairments/Disorders Psychiatric History: Reports: Hx Depression - Chronic - Cancer History Hx Chemotherapy: No Hx Radiation Therapy: No - Surgical History Surgery Procedure, Year, and Place: tubal ligation. COLECTOMY. RIGHT ACL. LEFT WRIST Hx Anesthesia Reactions: No Infectious Disease History: No Infectious Disease History: Reports: History Other Infectious Disease - e.coli in kidney Denies: Hx Clostridium Difficile, Hx Hepatitis, Hx Human Immunodeficiency Virus (HIV), Hx of Known/Suspected MRSA, Hx Shingles, Hx Tuberculosis, Hx Known/ Suspected VRE, Hx Known/Suspected VRSA, Traveled Outside the [place] in Last 30 Days - Family History Known Family History: Positive: Other - alzheimers, volvulus Negative: Hypertension, Respiratory Disease - Social History Alcohol Use: None Substance Use Type: Reports: None Hx Tobacco Use: No Smoking Status (MU): Never Smoked Tobacco Have You Smoked in the Last Year: No Review of Systems Positive: Chest Pain - now resolved Positive: Abdominal Pain - lower abdominal pain at onset, now moved upwards and is diffuse, Diarrhea. Negative: Vomiting, Nausea All Other Systems Reviewed And Are Negative: Yes Physical Exam - Summary Physical Exam Summary: VITAL SIGNS: Reviewed. GENERAL: Patient is a well-developed and nourished female who is lying comfortable in the stretcher. Patient is not in any acute respiratory distress. HEAD AND FACE: Normocephalic and atraumatic. EYES: PERRLA, EOMI x 2, No injected conjunctiva. EARS: Hearing grossly intact. Ear canals and tympanic membranes are WNL. MOUTH: Oropharynx within normal limits. NECK: Supple, trachea is midline, no adenopathy, no JVD. CHEST: Symmetric, no tenderness at palpation LUNGS: Clear to auscultation bilaterally. No wheezing or crackles. CVS: RRR, S1 and S2 present, no murmurs or gallops appreciated. ABDOMEN: Soft, Diffuse abdominal pain but more in lower abdomen. No signs of distention. Decreased bowel sounds. No rebound, no guarding, and no masses palpated. No abdominal bruit or pulsations. EXTREMITIES: FROM in all major joints, no edema, no cyanosis or clubbing. NEURO: Alert and oriented x 3. No acute neurological deficits. Speech is normal. SKIN: Dry and warm Triage Information Reviewed: Yes Vital Signs On Initial Exam: Initial Vitals Temp Pulse Resp BP Pulse Ox 97.8 F 67 16 139/76 99 07/05/18 16:40 07/05/18 16:40 07/05/18 16:40 07/05/18 16:40 07/05/18 16:40 Vital Signs Reviewed: Yes Diagnostics - Vital Signs Vital Signs Temp Pulse Resp BP Pulse Ox 07/05/18 17:54 63 99 07/05/18 16:40 97.8 F 67 16 139/76 99 - Laboratory Lab Results: Lab Results 07/05/18 07/05/18 07/05/18 Range/Units 17:14 17:14 17:14 WBC 6.5 (3.5-10.8) 10^3/uL RBC 3.99 (3.70-4.87) 10^6 /uL Hgb 11.9 L (12.0-16.0) g/dL Hct 36 (35-47) % MCV 89 (80-97) fL MCH 30 (27-31) pg MCHC 33 (31-36) g/dL RDW 13 (10.5-15) % Plt Count 312 (150-450) 10^3/uL MPV 7.4 (7.4-10.4) fL Neut % (Auto) 68.1 % Lymph % (Auto) 21.8 % Mccone % (Auto) 6.8 % Eos % (Auto) 2.7 % Baso % (Auto) 0.6 % Absolute Neuts (auto) 4.4 (1.5-7.7) 10^3/ul Absolute Lymphs (auto) 1.4 (1.0-4.8) 10^3/ul Absolute Monos (auto) 0.4 (0-0.8) 10^3/ul Absolute Eos (auto) 0.2 (0-0.6) 10^3/ul Absolute Basos (auto) 0.0 (0-0.2) 10^3/ul Absolute Nucleated RBC 0.0 10^3/ul Nucleated RBC % 0.0 Sodium 139 (135-145) mmol/L Potassium 4.4 (3.5-5.0) mmol/L Chloride 107 (101-111) mmol/L Carbon Dioxide 28 (22-32) mmol/L Anion Gap 4 (2-11) mmol/L BUN 14 (6-24) mg/dL Creatinine 0.85 (0.51-0.95) mg/dL Est GFR ( Amer) 83.1 (>60) Est GFR (Non-Af Amer) 68.7 (>60) BUN/Creatinine Ratio 16.5 (8-20) Glucose 120 H (70-100) mg/dL Lactic Acid 0.6 (0.5-2.0) mmol/L Calcium 9.7 (8.6-10.3) mg/dL Total Bilirubin 0.30 (0.2-1.0) mg/dL AST 20 (13-39) U/L ALT 14 (7-52) U/L Alkaline Phosphatase 70 (34-104) U/L C-Reactive Protein 2.75 (<8.01) mg/L Total Protein 6.8 (6.4-8.9) g/dL Albumin 4.1 (3.2-5.2) g/dL Globulin 2.7 (2-4) g/dL Albumin/Globulin Ratio 1.5 (1-3) Lipase 10 L (11.0-82.0) U/L Result Diagrams: 07/05/18 17:14 07/05/18 17:14 Lab Statement: Any lab studies that have been ordered have been reviewed, and results considered in the medical decision making process. - CT Abd/Pel CT CT Interpretation Completed By: Radiologist Summary of CT Findings: Normal small bowel without evidence of obstruction. Status post proximal colectomy. Constipation in the descending colon and sigmoid region. Bladder wall thickening may represent cystitis. Dr. Sorto has reviewed this radiology report. Re-Evaluation - Re-Evaluation First Eval Re-Evaluation Time: 20:24 Comment: Discussed bloodwork and CT results with the patient. Second Eval Re-Evaluation Time: 21:04 Comment: Discussed UA results with the patient and plan for discharge. Patient understands and agrees with this plan. Abdominal Pain Fem Course/Dx - Course Course Of Treatment: This patient is a 57 year old F presenting to ED with a chief complaint of lower abdominal pain since last night. The pain has now also moved upwards and is diffuse in the abdomen. It is non-radiating from the abdomen. The patient rates the pain 4/10 in severity. Symptoms aggravated by nothing. Symptoms alleviated by nothing. Patient reports diarrhea (yesterday) and CP (this morning while driving to work, now resolved). Patient denies N/V. Abdominal and Pelvic CT IMPRESSION: Normal small bowel without evidence of obstruction. Status post proximal colectomy. Constipation in the descending colon and sigmoid region. Bladder wall thickening may represent cystitis. Blood work without any significant abnormality except for glucose of 120 and lipase of 10. Urinalysis is negative for UTI therefore I do not believe that the patient has cystitis. I discussed all the findings and test results with the patient. Patient was instructed to return to the emergency room immediately if any of the symptoms return worsens. Plan of care was discussed with the patient and understands and agrees. All questions were answered at patient satisfaction. There were no further complaints or concerns. Lung exam before discharge: CTA B/L. Good air exchange. No wheezing or crackles heard. CVS: S1 and S2 present. No murmurs appreciated. Patient is alert and oriented x 3. Patient is hemodynamically stable. Patient will be discharged home with follow up PCP in the next 2-3 days - Diagnoses Differential Diagnosis: Positive: Other - lower abdominal pain Provider Diagnoses: Lower abdominal pain Discharge - Sign-Out/Discharge Documenting (check all that apply): Patient Departure - discharge Patient Received Moderate/Deep Sedation with Procedure: No - Discharge Plan Condition: Stable Disposition: HOME Patient Education Materials: Acute Abdominal Pain (ED) Referrals: Carlos Sierra MD [Primary Care Provider] - 3 Days Additional Instructions: FOLLOW UP WITH YOUR PRIMARY CARE PHYSICIAN IN 3 DAYS. RETURN TO THE ED FOR ANY WORSENING OR NEW SYMPTOMS. - Billing Disposition and Condition Condition: STABLE Disposition: Home - Attestation Statements Document Initiated by Scribe: Yes Documenting Scribe: Prudencio Garcia Provider For Whom Cody is Documenting (Include Credential): Saleem Sorto MD Scribe Attestation: Prudencio Mora, scribed for Saleem Sorto MD on 07/05/18 at 2115. Scribe Documentation Reviewed: Yes Provider Attestation: The documentation as recorded by the scribe, Prudencio Jose accurately reflects the service I personally performed and the decisions made by me, Saleem Sorto MD Status of Scribe Document: Viewed
[2018-07-05 20:52] LABS: Urine Appearance Clear; Urine Bacteria Absent (Absent); Urine Bilirubin Negative (Negative); Urine Blood 1+ (Negative); Urine Color Straw; Urine Glucose Negative (Negative); Urine Ketones Negative (Negative); Urine Nitrite Negative (Negative); Urine Protein Negative (Negative); Urine Red Blood Cell Trace(0-2/hpf) (Absent); Urine Specific Gravity 1.031 (1.010-1.030); Urine Squamous Epithelial Cell Present (Absent); Urine Urobilinogen Negative (Negative); Urine White Blood Cell Absent (Absent)
[2018-07-05 21:12] VITALS: BP 148/82
== END | disposition home or self-care (01) ==
LOC: ED 16:21
DX: R10.30 Lower abdominal pain, unspecified (principal); I10 Essential (primary) hypertension; E06.3 Autoimmune thyroiditis; D64.9 Anemia, unspecified; G47.30 Sleep apnea, unspecified; K21.9 Gastro-esophageal reflux disease without esophagitis; K44.9 Diaphragmatic hernia without obstruction or gangrene; F32.9 Major depressive disorder, single episode, unspecified; Z79.899 Other long term (current) drug therapy
CPT/HCPCS: 36415; 74177; 80053; 81003; 81015; 83605; 83690; 85025; 86140; 99283; Q9967

== ENCOUNTER 2019-04-15 14:29 | Emergency (ER) | payer BC ==
--- OUTSIDE RECORDS SUMMARY | 2019-04-15 14:35 | XMS REPORT | Continuity of Care Document ---
:1960 External Reference #:[id number] Author Name Kristy Evangelista M.D. (transmitted by agent of provider Shana Estrada) Address [address] [place] [id number] Care Team Providers Name Role Phone Carlos Sierra MD - Family Care Team Information [employer] [phone] Medicine Problems Active Problems Provider Date Electrocardiogram abnormal [...] syndrome Zahra Webster DNP, RN, Onset: 08/09/2017 [facility]- Hypersomnia Zahra Webster DNP, RN, Onset: 08/09/2017 [facility]- Arthroplasty of knee Kristy Evangelista M.D. Onset: 06/03/2018 Social History Type Date Description Comments Sex Unknown Tobacco Use Start: Unknown Never Smoked Cigarettes Smoking Status Reviewed: 03/19/19 Never Smoked Cigarettes ETOH Use Denies alcohol use Tobacco Use Start: Unknown Patient has never smoked Recreational Drug Use Denies Drug Use Exercise Type/Frequency Exercises rarely Allergies, Adverse Reactions, Alerts Description No Known Drug Allergies Medications Active Medications SIG Qnty Indications Ordering Provider Date Naproxen Take 1 tablet 60tabs M25.562 Kristy Evangelista, 11/02/2017 500mg Tablets by mouth twice M.D. daily with food Clonidine HCL 1 by mouth once 60tabs Qutaybdiana S. 04/24/2014 0.2mg Tablets a day Tom Adler Effexor XR 1 by mouth 90caps Qutaybdiana S. 11/17/2013 150mg Caps ER every day Tom Adler 24HR Estroven Maximum 1 tab daily taad S. 11/17/2013 Strength Tom Adler Tablets Norvasc 1 by mouth 30tabs Unknown 10mg Tablets every day Levothyroxine Sodium 1 by mouth 30tabs Unknown 150mcg every day Tablets Advil Unknown Medications Administered in Office Medication SIG Qnty Indications Ordering Provider Date Synvisc Or Synvisc-One Injection Kristy Evangelista M.D. 03/19/2019 1 MG Injection Synvisc Or Synvisc-One Injection Kristy Evangelista M.D. 03/12/2019 1 MG Injection Depomedrol 40MG Kristy Evangelista M.D. 10/04/2018 Injection Depomedrol 40MG Kristy Evangelista M.D. 08/02/2018 Injection Depomedrol 40MG Kristy Evangelista M.D. 02/01/2018 Injection Depomedrol 40MG Kristy Evangelista M.D. 02/01/2018 Injection Depomedrol 40MG Kristy Evangelista M.D. 11/02/2017 Injection Depomedrol 40MG Kristy Evangelista M.D. 11/02/2017 Injection Depomedrol 40MG SHELBY Knott 11/10/2009 Injection Immunizations Description No Information Available Vital Signs Date Vital Result Comment 03/19/2019 8:14am Height 64 inches 5'4" Weight 198.00 lb Heart Rate 70 /min Body Temperature 97.0 F O2 % BldC Oximetry 98 % BMI (Body Mass Index) 34.0 kg/m2 03/12/2019 8:07am Height 64 inches 5'4" Weight 195.00 lb Heart Rate 71 /min BP Systolic 130 mmHg BP Diastolic 76 mmHg Respiratory Rate 16 /min Pain Level 2 BMI (Body Mass Index) 33.5 kg/m2 Results Test Acquired Date Facility Test Result H/L Range Note Quantifero 12/12/2018 [facility] QuantiferonTb Gold Negative Negative 1 n-TB Gold [address] [place] [address] [phone] Ag minus Nil Result 0.03 IU/mL TB2 Ag minus Nil Result 0.01 IU/mL Mitogen minus Nil Result 13.04 IU/mL Nil Result 0.01 IU/mL 1 M. tuberculosis infection NOT likely Procedures Date Code Description Status 03/19/201996120 Inject/Drain Joint/Bursa Major W/O US Completed 10/04/201856720 Inject/Drain Joint/Bursa Major W/O US Completed 11/10/2009 [id number] Colonoscopy Completed 11/13/2005 [id number] Colonoscopy Completed Medical Devices Description No Information Available Encounters Type Date Location Provider Dx Diagnosis Office Visit 10/04/2018 [facility] Kristy Evangelista, M25.562 Pain in left [place] 2:[place] M25.462 Effusion, left knee M17.12 Unilateral primary osteoarthritis, left knee M25.561 Pain in right knee Z96.651 Presence of right artificial knee joint Assessments Date Code Description Provider 03/19/2019 M25.562 Pain in left knee Kristy Evangelista M.D. 03/19/2019 M25.462 Effusion, left knee Kristy Evangelista M.D. 03/19/2019 M17.12 Unilateral primary osteoarthritis, left knee Kristy Evangelista M.D. 03/12/2019 M25.562 Pain in left knee Kristy Evangelista M.D. 03/12/2019 M25.462 Effusion, left knee Kristy Evangelista M.D. 03/12/2019 M17.12 Unilateral primary osteoarthritis, left knee Kristy Evangelista M.D. 10/04/2018 M25.562 Pain in left knee Kristy Evangelista M.D. 10/04/2018 M25.462 Effusion, left knee Kristy Evangelista M.D. 10/04/2018 M17.12 Unilateral primary osteoarthritis, left knee Kristy Jean Carlos , M.D. 10/04/2018 M25.561 Pain in right knee Kristy Evangelista M.D. 10/04/2018 Z96.651 Presence of right artificial knee joint Kristy Evangelista M.D. Plan of Treatment Future Appointment(s):03/26/2019 8:15 am - Kristy Evangel[facility] M.D. at [facility]03/19/2019 - Kristy Evangelista M.D.M25.562 Pain in left kneeFollow up:Follow up: 1 weekM25.462 Effusion, left kneeM17.12 Unilateral primary osteoarthritis, left knee Functional Status Description No Information Available Mental Status Description No Information Available Referrals Description No Information Available
--- OUTSIDE RECORDS SUMMARY | 2019-04-15 14:35 | XMS REPORT | Continuity of Care Document ---
:1960 External Reference #:[id number] Author Name Emil Sherwood MD (transmitted by agent of provider Sharon [place]) Address [address] [place] [id number] Care Team Providers Name Role Phone Carlos Sierra MD - Family Care Team Information Shipper [phone] Medicine Problems Active Problems Provider Date Electrocardiogram [...] syndrome Zahra Webster DNP, RN, Onset: 08/09/2017 [facility]- Hypersomnia Zahra Webster DNP, RN, Onset: 08/09/2017 [facility]- Arthroplasty of knee Kristy Evangelista [...] Medications Active Medications SIG Qnty Indications Ordering Date Provider Cyclobenzaprine HCL take 5mg at 90tabs M62.838 Emil Sherwood, 03/19/2019 5mg night before MD Tablets bedtime Naproxen Take 1 tablet 60tabs M25.562 Kristy Evangelista, 11/02/2017 500mg Tablets by mouth twice M.D. daily with food Clonidine HCL 1 by mouth once 60tabs Qutaybeh S. 04/24/2014 0.2mg Tablets a day Tom Adler Effexor XR 1 by mouth 90caps Qutaybeh S. 11/17/2013 150mg Caps ER 24HR every day Tom Adler Norvasc 1 by mouth 30tabs Unknown 10mg Tablets every day Levothyroxine Sodium 1 by mouth 30tabs Unknown 150mcg every day Tablets Acetaminophen Extra 2 tabs by mouth Unknown Strength every 8 hours 500mg Tablets as needed for pain or fever Multi Vitamin Daily 1 by mouth Unknown Tablets every day Medications Administered in Office Medication SIG Qnty [...] % BMI (Body Mass Index) 34.0 kg/m2 03/18/2019 1:52pm Height 64 inches 5'4" Weight 205.00 lb Heart Rate 65 /min BP Systolic 113 mmHg BP Diastolic 77 mmHg Body Temperature 98.7 F Pain Level 2 O2 % BldC Oximetry 98 % BMI (Body Mass Index) 35.2 kg/m2 Results Test Acquired Date Facility Test Result H/L Range Note Quantifero 12/12/2018 [facility] QuantiferonTb Gold Negative Negative 1 n-TB Gold [address] [place] [address] [phone] TB1 Ag minus Nil Result 0.03 IU/mL TB2 Ag minus Nil Result 0.01 IU/mL Mitogen minus Nil Result 13.04 IU/mL Nil Result 0.01 IU/mL 1 M. tuberculosis infection NOT likely Procedures Date Code Description Status 03/19/201915693 Inject/Drain Joint/Bursa Major W/O US Completed 10/04/201877963 Inject/Drain Joint/Bursa Major W/O US Completed 11/10/2009 [id number] Colonoscopy Completed 11/13/2005 [id number] Colonoscopy Completed Medical Devices Description No Information Available Encounters Type Date Location Provider Dx Diagnosis Office Visit 10/04/2018 [facility] Kristy Evangelista, M25.562 Pain in left knee 2:00p at [facility] M25.462 Effusion, left knee M17.12 Unilateral primary osteoarthritis, left knee M25.561 Pain in right knee Z96.651 Presence of right artificial knee joint Assessments Date Code Description Provider 03/19/2019 M17.12 Unilateral primary osteoarthritis, left knee Emil Sherwood MD 03/19/2019 M25.562 Pain in left knee Kristy Evangelista M.D. 03/19/2019 M19.041 Primary osteoarthritis, right hand Emil Sherwood MD 03/19/2019 M25.462 Effusion, left knee Kristy Evangelista M.D. 03/19/2019 M19.042 Primary osteoarthritis, left hand Emil Sherwood MD 03/19/2019 M17.12 Unilateral primary osteoarthritis, left knee Kristy Evangelista M.D. 03/19/2019 G56.01 Carpal tunnel syndrome, right upper limb Emil Sherwood MD 03/19/2019 M54.2 Cervicalgia Emil Sherwood MD 03/19/2019 M54.5 Low back pain Emil Sherwood MD 03/19/2019 M62.838 Other muscle spasm Emil Sherwood MD 03/12/2019 M25.562 Pain in left knee KristyTera Mckeon.DHilario 03/12/2019 M25.462 Effusion, left knee Kristy Evangelista M.D. 03/12/2019 M17.12 Unilateral primary osteoarthritis, left knee Kristyashleigh Evangelista M.D. 10/04/2018 M25.562 Pain in left knee Kristy Jean Carlos, M.DHilario 10/04/2018 M25.462 Effusion, left knee Kristy Evangelista M.D. 10/04/2018 M17.12 Unilateral primary osteoarthritis, left knee Kristy Evangelista M.D. 10/04/2018 M25.561 Pain in right knee KristyTera Mckeon.DHilario 10/04/2018 Z96.651 Presence of right artificial knee joint Kristy Evangelista M.D. Plan of Treatment Future Appointment(s):06/18/2019 8:30 am - Emil Sherwood MD at [facility]03/26/2019 8:15 am - Kristy Evangelista M.D. at [facility] at [facility]/19/2019 - Emil Sherwood, MDM17.12 Unilateral primary osteoarthritis, left kneeComments:Recommend consideration of tapering down on effexor and starting cymbalta 30mg daily (and then uptitrate to 60mg) if considered OK for depression, etc.Follow up:3 ldgxupJ86.041 Primary osteoarthritis, right handM19.042 Primary osteoarthritis, left handG56.01 Carpal tunnel syndrome, right upper limbNew Orders:Wrist Splint R, Ordered: M54.2 MeraqlwmttlN22.5 Low back painNew Therapy:Physical PyuxnyeL66.838 Other muscle spasmNew Medication:Cyclobenzaprine HCL 5 mg - take 5mg at night before bedtimeComments:Can take flexeril 5mg just at night, half an hour before bedRecommend salonpas OTC lidocaine 4% patches Functional Status Description No Information Available Mental Status Description No Information Available Referrals Description No Information Available
--- OUTSIDE RECORDS SUMMARY | 2019-04-15 14:35 | XMS REPORT | Continuity of Care Document ---
:1960 External Reference #:[id number] Author Name Carlos Sierra MD Address [address] [place] [address] Care Team Providers Name Role Phone Julio CesarIvette - Obstetrics & Care Team Information Patternmaker Bench [phone] Gynecology aCrlos Sierra MD - Family Care Team Information Patternmaker Bench Medicine Problems Active Problems Provider Date Hypothyroidism Drake Cerda M.D. Onset: 03/15/2009 Depressive disorder Drake Cerda M.D. Onset: 03/15/2009 Genital herpes simplex Drake Cerda M.D. Onset: 03/15/2009 Essential hypertension Drake Cerda M.D. 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 Onset: 03/11/2015 Neck pain Drake Cerda M.D. Onset: 03/11/2015 Social History Type Date Description Comments Sex Unknown Tobacco Use Start: Unknown Nonsmoker ETOH Use Rare Tobacco Use Start: Unknown Patient has never smoked Smoking Status Reviewed: 04/04/18 Patient has never smoked Allergies, Adverse Reactions, Alerts Description No Known Drug Allergies Medications Active Medications SIG Qnty Indications Ordering Provider Date Venlafaxine HCL ER 3 caps daily 270caps F33.2 Carlos Dunlap 03/31/2019 37.5mg MD Rigo Caps ER 24HR Amlodipine Besylate take one tablet 90tabs I10 Carlos Dunlap 07/17/2018 10mg by mouth every MD Rigo Tablets day Naproxen take 1 tablet 60tabs Drake Cerda, 06/28/2010 500mg Tablets twice daily as M.D. needed Clonidine HCL Take 1 Tablet 60tabs I10 Drake Cerda, 04/07/2010 0.2mg By Mouth Twice M.D. Tablets Daily. Vitamin D High Potency 1 po qd Unknown 2000Units Capsules Levothyroxine Sodium take one tablet 90tabs E03.9 Carlos T. by mouth every MD Rigo 150mcg Tablets day Multivitamin Adults 1 by mouth Unknown every day Tablets Turmeric Unknown 500mg Capsules Medical Marijuana prn Unknown Cream Immunizations CPT Code Status Date Vaccine Lot # [id number] Given 03/15/2009 Tetanus And Diptheria Adult Preservative Free [id number] Vital Signs Date Vital Result Comment 03/31/2019 9:38am BP Systolic 130 mmHg BP Diastolic 86 mmHg Heart Rate 78 /min Body Temperature 97.5 F Height 65 inches 5'5" Weight 199.00 lb BMI (Body Mass Index) 33.1 kg/m2 04/04/2018 10:51am BP Systolic 110 mmHg BP Diastolic 80 mmHg Heart Rate 56 /min Body Temperature 98.9 F Height 65 inches 5'5" Weight 203.00 lb BMI (Body Mass Index) 33.8 kg/m2 Results Description No Information Available Procedures Date Code Description Status 08/06/2018 [id number] Mammogram Completed 08/02/2017 [id number] Mammogram Completed 07/27/2016 [id number] Mammogram Completed 06/03/2015 [id number] Mammogram Completed 05/22/2014 [id number] Mammogram Completed 05/23/2013 [id number] Mammogram Completed 03/05/2012 [id number] Mammogram Completed 03/13/2011 [id number] Mammogram Completed 03/10/2011 [id number] Mammogram Completed 08/09/2010 [id number] Mammogram Completed 03/11/2010 [id number] Mammogram Completed 11/10/2009 [id number] Colonoscopy Completed 03/11/2009 [id number] Mammogram Completed 02/26/2009 [id number] Bone Mineral Density Test Completed 12/12/2007 [id number] Mammogram Completed 02/27/2004 [id number] Colonoscopy Completed Medical Devices Description No Information Available Encounters Description No Information Available Assessments Date Code Description Provider 03/31/2019 F41.9 Anxiety disorder, unspecified Carlos Sierra MD 03/31/2019 E03.9 Hypothyroidism, unspecified Carlos Sierra MD 03/31/2019 E55.9 Vitamin D deficiency, unspecified Carlos Sierra MD 03/31/2019 E78.00 Pure hypercholesterolemia, unspecified Carlos Sierra MD Plan of Treatment Future Appointment(s):06/30/2019 10:40 am - Carlos Sierra MD at [facility] [id number]/31/2019 - Carlos Sierra MDF41.9 Anxiety disorder, unspecifiedFollow up:3 moE03.9 Hypothyroidism, unspecifiedNew Labs:TSH W/Free T4 RFX, Ordered: 03/31/19CCS-Lipid Profile (CMC), Ordered: 03/31/19CBC Electronic-ALL Lab Compani, Ordered: 03/31/19E55.9 Vitamin D deficiency, unspecifiedNew Labs:Vitamin D, 25Hydroxy(Fma/LC, Ordered: 03/31/19E78.00 Pure hypercholesterolemia, unspecifiedAllNew Medication:Venlafaxine HCL ER 37.5 mg - 3 caps dailyComments:Medication Management Patient Understands medications she' s taking? Yes No Are there Barriers to Adherence? Yes No Has the patient been asked about herbal supplements and therapies, and OTC meds? Yes No Functional Status Description No Information Available Mental Status Description No Information Available Referrals Refer to Reason for Referral Status Appt Date Carlos Tomlinson MD OA jw Scheduled 03/19/2019 [address], [place] [address] [phone]
--- OUTSIDE RECORDS SUMMARY | 2019-04-15 14:35 | XMS REPORT | Continuity of Care Document ---
:1960 External Reference #:[id number] Author Name Avinash Lopez M.D. Address [address] [place] [address] Care Team Providers Name Role Phone Carlos Sierra M.D. - Family Care Team Information Animal Handler [phone] Medicine Carlos Sierra M.D. - Family Care Team Information Animal Handler [phone] Medicine Problems Active Problems Provider Date Srinivas thyroiditis Onset: Essential hypertension Onset: Arthritis Onset: Depressive disorder Onset: Hypothyroidism Onset: Presbyopia Avinash Lopez M.D. Onset: 03/31/2019 Myopia Avinash Lopez M.D. Onset: 03/31/2019 Nuclear senile cataract Avinash Lopez M.D. Onset: 03/31/2019 Social History Type Date Description Comments Sex Unknown ETOH Use Rarely consumes alcohol Recreational Drug Use Denies Drug Use Tobacco Use Start: Unknown Patient has never smoked Smoking Status Reviewed: 03/31/19 Patient has never smoked Allergies, Adverse Reactions, Alerts Description No Known Drug Allergies Medications Active Medications SIG Qnty Indications Ordering Provider Date Norvasc 10mg Unknown Tablets Effexor XR Unknown 150mg Caps ER 24HR Levothyroxine Sodium Unknown 150mcg Tablets Naproxen 500mg Unknown Tablets Multi Vitamin Unknown Tablets Tumeric Unknown Vareo (Topical Medical Marijuana) Unknown Clonidine HCL Unknown 0.1mg Tablets Visine Unknown 0.025-0.3% Solution Immunizations Description No Information Available Vital Signs Description No Information Available Results Description No Information Available Procedures Description No Information Available Medical Devices Description No Information Available Encounters Description No Information Available Assessments Date Code Description Provider 03/31/2019 H25.13 Age-related nuclear cataract, bilateral Avinash Lopez M.D. 03/31/2019 H52.13 Myopia, bilateral Avinash Lopez M.D. 03/31/2019 H52.4 Presbyopia Avinash Lopez M.D. Plan of Treatment 03/31/2019 - Avinash Lopez M.D.H25.13 Age-related nuclear cataract, bilateralComments:Smoking can increase the risk of developing or worsening any eye related disease, as well as affect your overall health. If you are a smoker , we strongly recommend that you quit.If you are not a smoker, we strongly recommend that you do not start. You have been diagnosed with cataracts. If you are happy with your vision as it is now, then we will see you at your next scheduled appointment. If you feel like your vision is getting worse before your scheduled appointment, please call Tracey at [phone].Follow up:2 Year Follow Up DFE You can expect to have your eyes dilated at your next visit. If Dr. Lopez orders any additional testing, it may require extra time. We recommend that you bring sunglasses, as dilation drops often make you light sensitive until they wear off. We always recommend you bring someone to drive you home if you are uncomfortable driving with your eyes dilated. If you have any questions before your next visit, feel free to call our office at [phone].H52.13 Myopia, bilateralComments:You have Myopia, or near sightedness. I have given you a prescription for glasses.H52.4 Presbyopia Functional Status Description No Information Available Mental Status Description No Information Available Referrals Description No Information Available
--- OUTSIDE RECORDS SUMMARY | 2019-04-15 14:35 | XMS REPORT | Continuity of Care Document ---
:1960 External Reference #:[id number] Author Name Kristy Evangelista M.D. (transmitted by agent of provider Shana Estrada) Address [address] [place] [id number] Care Team Providers Name Role Phone Carlos Sierar MD - Family Care Team Information Housekeeping Supervisor Medicine Problems Active Problems Provider Date Electrocardiogram [...] syndrome Zahra Webster DNP, RN, Onset: 08/09/2017 [facility]- Hypersomnia Zahra Webster DNP, RN, Onset: 08/09/2017 [facility]- Arthroplasty of knee Kristy Evangelista M.D. Onset: 06/03/2018 Social History Type Date Description Comments Sex Unknown Tobacco Use Start: Unknown Never Smoked Cigarettes Smoking Status Reviewed: 03/26/19 Never Smoked Cigarettes ETOH Use Denies alcohol use Tobacco Use Start: Unknown Patient has never smoked Recreational Drug Use Denies Drug Use Exercise Type/Frequency Exercises rarely Allergies, Adverse Reactions, Alerts Description No Known Drug Allergies Medications Active Medications SIG Qnty Indications Ordering Date Provider Morganbenzaprine HCL take 5mg at 90tabs M62.838 Emil [...] 1 by mouth Unknown Tablets every day Tylenol Unknown Medications Administered in Office Medication SIG Qnty Indications Ordering Provider Date Synvisc Or Synvisc-One Injection Kristy Evangelista M.D. 03/19/2019 1 MG Injection Synvisc Or Synvisc-One Injection Kristy Evangelista M.D. 03/12/2019 1 MG Injection Depomedrol 40MG Kristy Evangelista M.D. 10/04/2018 Injection Depomedrol 40MG Kristy Evangelista M.D. 08/02/2018 Injection Depomedrol 40MG Kristy Evangelista M.D. 02/01/2018 Injection Depomedrol 40MG Kristy Evangelista M.D. 02/01/2018 Injection Wildomedrol 40MG Kristy Evangelista M.D. 11/02/2017 Injection Depomedrol 40MG Kristy Evangelista M.D. 11/02/2017 Injection Depomedrol 40MG SHELBY Knott 11/10/2009 Injection Immunizations Description No Information Available Vital Signs Date Vital Result Comment 03/26/2019 8:24am Height 64 inches 5'4" Weight 198.00 lb Heart Rate 72 /min BP Systolic 124 mmHg BP Diastolic 82 mmHg Respiratory Rate 12 /min Body Temperature 98.2 F Pain Level 1 BMI (Body Mass Index) 34.0 kg/m2 03/19/2019 8:14am Height 64 inches 5'4" Weight 198.00 lb Heart Rate 70 /min Body Temperature 97.0 F O2 % BldC Oximetry 98 % BMI (Body Mass Index) 34.0 kg/m2 Results Test Acquired Date Facility Test Result H/L Range Note Quantifero 12/12/2018 [facility] QuantiferonTb Gold Negative Negative 1 n-TB Gold [address] [address] [phone] TB1 Ag minus Nil Result 0.03 IU/mL TB2 Ag minus Nil Result 0.01 IU/mL Mitogen minus Nil Result 13.04 IU/mL Nil Result 0.01 IU/mL 1 M. tuberculosis infection NOT likely Procedures Date Code Description Status 03/26/201993205 Inject/Drain Joint/Bursa Major W/O US Completed 03/19/201973197 Inject/Drain Joint/Bursa Major W/O US Completed 03/12/2019 20367 Inject/Drain Joint/Bursa Major W/O US Completed 10/04/2018 [id number] Inject/Drain Joint/Bursa Major W/O US Completed 11/10/2009 [id number] Colonoscopy Completed 11/13/2005 [id number] Colonoscopy Completed Medical Devices Description No Information Available Encounters Type Date Location Provider Dx Diagnosis Office Visit 03/19/2019 Rheumatology Emil Sherwood, M17.12 Unilateral 2:00p [facility] - primary Ccmob osteoarthritis, left knee M19.041 Primary osteoarthritis, right hand M19.042 Primary osteoarthritis, left hand G56.01 Carpal tunnel syndrome, right upper limb M54.2 Cervicalgia M54.5 Low back pain M62.838 Other muscle spasm Office Visit 10/04/2018 2:00p [facility] Kristy Evangelista M25.562 Pain in left at [facility] knee M25.462 Effusion, left knee M17.12 Unilateral primary osteoarthritis, left knee M25.561 Pain in right knee Z96.651 Presence of right artificial knee joint Assessments Date Code Description Provider 03/26/2019 M17.12 Unilateral primary osteoarthritis, left knee Kristy Evangelista M.D. 03/26/2019 M25.562 Pain in left knee Kristy Evangelista M.D. 03/19/2019 M17.12 Unilateral primary osteoarthritis, left knee Emil Sherwood MD 03/19/2019 M25.562 Pain in left knee KristyGuerrero MckeonDHilario 03/19/2019 M19.041 Primary osteoarthritis, right hand Emil [...] MD 03/12/2019 M25.562 Pain in left knee Kristy [...] Z96.651 Presence of right artificial knee joint Krisyt Evangelista M.D. Plan of Treatment Future Appointment(s):06/18/2019 8:30 am - Emil Sherwood MD at [facility]03/26/2019 - Kristy Evangelista M.D.M17.12 Unilateral primary osteoarthritis, left kneeFollow up:Follow up: 1 weekM25.562 Pain in left knee Functional Status Description No Information Available Mental Status Description No Information Available Referrals Description No Information Available
--- OUTSIDE RECORDS SUMMARY | 2019-04-15 14:35 | XMS REPORT | Continuity of Care Document ---
:1960 External Reference #:[id number] Author Name Kristy Evangelista M.D. (transmitted by agent of provider Shana Estrada) Address [address] [place] [phone] Care Team Providers Name Role Phone Carlos Sierra MD - Family Care Team Information Facilities Maintenance Technician Medicine Problems Active Problems Provider Date Electrocardiogram [...] syndrome Zahra Webster DNP, RN, Onset: 08/09/2017 [facility]- Hypersomnia Zahra Webster DNP, RN, Onset: 08/09/2017 [facility]- Arthroplasty of knee Kristy Evangelista M.D. Onset: 06/03/2018 Social History Type Date Description Comments Sex Unknown Tobacco Use Start: Unknown Never Smoked Cigarettes Smoking Status Reviewed: 03/12/19 Never Smoked Cigarettes ETOH Use Denies alcohol [...] Provider Date Depomedrol 40MG Kristy Evangelista M.D. 10/04/2018 Injection Depomedrol 40MG Kristy Evangelista M.D. 08/02/2018 Injection Depomedrol 40MG Kristy Evangelista M.D. 02/01/2018 Injection Depomedrol 40MG Kristy Evangelista M.D. 02/01/2018 Injection Depomedrol 40MG Kristy Evangelista M.D. 11/02/2017 Injection Depomedrol 40MG Kristy Evangelista M.D. 11/02/2017 Injection Depomedrol 40MG SHELBY Knott 11/10/2009 Injection Immunizations Description No Information Available Vital Signs Date Vital Result Comment 03/12/2019 8:07am Height 64 inches 5'4" Weight 195.00 lb Heart Rate 71 /min BP Systolic 130 mmHg BP Diastolic 76 mmHg Respiratory Rate 16 /min Pain Level 2 BMI (Body Mass Index) 33.5 kg/m2 10/04/2018 2:25pm Height 64 inches 5'4" Weight 195.00 lb BP Systolic 122 mmHg BP Diastolic 74 mmHg Body Temperature 97.9 F BMI (Body Mass Index) 33.5 kg/m2 Results Test Acquired Date Facility Test Result H/L Range Note Quantifero 12/12/2018 [facility] QuantiferonTb Gold Negative Negative 1 n-TB Gold [address] [place] [address] [phone] Ag minus Nil Result 0.03 IU/mL TB2 Ag minus Nil Result 0.01 IU/mL Mitogen minus Nil Result 13.04 IU/mL Nil Result 0.01 IU/mL 1 M. tuberculosis infection NOT likely Procedures Date Code Description Status 10/04/2018 69043 Inject/Drain Joint/Bursa Major W/O US Completed 11/10/2009 [id number] Colonoscopy Completed 11/13/2005 [id number] Colonoscopy Completed Medical Devices Description No Information Available Encounters Type Date Location Provider Dx Diagnosis Office Visit 10/04/2018 [facility] Kristy Evangelista, M25.562 Pain in left knee 2:00p at [facility] M25.462 Effusion, left knee M17.12 Unilateral primary osteoarthritis, left knee M25.561 Pain in right knee Z96.651 Presence of right artificial knee joint Assessments Date Code Description Provider 03/12/2019 M25.562 Pain in left knee Kristy [...] Kristy Evangelista M.D. Plan of Treatment Future Appointment(s):03/19/2019 8:30 am - Kristy Evangelista M.D. at [facility]03/26/2019 8:15 am - Kristy Evangelista M.D. at [facility]03/19/2019 2:00 pm - Emil Sherwood MD at [facility]03/12/2019 - Kristy Evangelista M.D.M25.562 Pain in left kneeFollow up:Follow up: 1 weekM25.462 Effusion, left kneeM17.12 Unilateral primary osteoarthritis, left knee Functional Status Description No Information Available Mental Status Description No Information Available Referrals Description No Information Available
--- NOTE | 2019-04-15 14:54 | UC ---
Eye Complaint HPI - HPI Summary HPI Summary: 58 yo female presents with eye complaint. She tells me that this morning she woke up with her LEFT eye red, itchy, and with yellow crusts and drainage. Since the day has progressed she has noticed this in her right eye as well. She wears glasses, but no contacts. Denies fever, chills, sinus symptoms, sore throat, rash, vision changes, or trauma/FB to eyes. - History of Current Complaint Stated Complaint: EYE COMPLAINT Time Seen by Provider: 04/15/19 14:54 Hx Obtained From: Patient Hx Last Menstrual Period: n/a Onset/Duration: Sudden Onset Timing: Constant Severity Initially: Mild Severity Currently: Mild Pain Intensity: 2 Pain Scale Used: 0-10 Numeric - Allergies/Home Medications Allergies/Adverse Reactions: Allergies Allergy/AdvReac Type Severity Reaction Status Date / Time No Known Allergies Allergy Verified 04/15/19 15:07 PMH/Surg Hx/FS Hx/Imm Hx Endocrine History: Hypothyroidism Psychological History: Anxiety - Surgical History Surgical History: Yes Surgery Procedure, Year, and Place: tubal ligation. COLECTOMY. RIGHT ACL. LEFT WRIST - Family History Known Family History: Positive: Other - alzheimers, volvulus Negative: Hypertension, Respiratory Disease - Social History Lives: With Family Alcohol Use: None Substance Use Type: None Smoking Status (MU): Never Smoked Tobacco Have You Smoked in the Last Year: No Household Exposure Type: Cigarettes - Immunization History Most Recent Influenza Vaccination: 2017 Most Recent Tetanus Shot: 2013 Most Recent Pneumonia Vaccination: Never Review of Systems All Other Systems Reviewed And Are Negative: No Constitutional: Positive: Negative Skin: Positive: Negative Eyes: Positive: Drainage, Eye Redness ENT: Positive: Negative Respiratory: Positive: Negative Cardiovascular: Positive: Negative Neurological/Mental Status: Positive: Negative Psychological: Positive: Negative Physical Exam - Summary Physical Exam Summary: GENERAL: WDWN. No pain distress. SKIN: No rashes, sores, lesions, or open wounds. HEENT: Head: AT/NC Eyes: EOM intact. PERRLA. B/L eyes, but LEFT>RIGHT EYE: Mild scleral injection. Conjunctiva with mild erythema and inflammation. Mild clear/ yellow discharge. No FBs appreciated Nose: NTTP maxillary and frontal sinus. NECK: Supple. Nontender. No lymphadenopathy. CHEST: No accessory muscle use. Breathing comfortably and in no distress. CV: Pulses intact. Cap refill <2seconds NEURO: Alert. PSYCH: Age appropriate behavior. Triage Information Reviewed: Yes Vital Signs: Vital Signs: Temp Pulse Resp BP Pulse Ox 98 F 62 16 140/82 100 04/15/19 14:59 04/15/19 14:59 04/15/19 14:59 04/15/19 14:59 04/15/19 14:59 Levothyroxine TAB* [Synthroid 150 MCG TAB*] 150 mcg PO QAM 10/20/13 [History Confirmed 04/15/19] amLODIPine TAB* [Norvasc 5 mg TAB*] 10 mg PO QAM 04/02/14 [History Confirmed ] Multivitamins/Minerals TAB* [Theragran/minerals TAB*] 1 tab PO QAM 11/05/14 [ History Confirmed 04/15/19] Venlafaxine ER (NF) [Effexor ER (NF)] 111 mg PO QAM 11/05/14 [History Confirmed 04/15/19] cloNIDine TAB* [Catapres 0.1 MG TAB*] 0.2 mg PO QAM 11/05/14 [History Confirmed 04/15/19] Naproxen 500 mg PO QAM 05/14/15 [History Confirmed 04/15/19] Cyclobenzaprine TAB* [Flexeril 10 MG TAB*] 10 mg PO TID PRN #30 tab 05/03/18 [ Rx Confirmed 04/15/19] Ofloxacin 0.3% (Eye Drop) [Ocuflox OPTH 0.3% (Eye Drop)] 1 drop BOTH EYES QID 7 Days #1 btl 04/15/19 [Rx] Vital Signs Reviewed: Yes Eye Complaint Course/Dx - Course Course Of Treatment: Conjunctivitis - Differential Dx/Diagnosis Provider Diagnosis: Conjunctivitis Discharge ED - Sign-Out/Discharge Documenting (check all that apply): Patient Departure All imaging exams completed and their final reports reviewed: No Studies - Discharge Plan Condition: Stable Disposition: HOME Prescriptions: Ofloxacin 0.3% (Eye Drop) [Ocuflox OPTH 0.3% (Eye Drop)] 1 drop BOTH EYES QID 7 Days #1 btl Patient Education Materials: Conjunctivitis (ED) Referrals: Carlos Sierra MD [Primary Care Provider] - Additional Instructions: If you develop a fever, shortness of breath, chest pain, new or worsening symptoms - please call your PCP or go to the ED immediately. - Billing Disposition and Condition Condition: STABLE Disposition: Home
[2019-04-15 15:06] VITALS: BP 140/82
== END 2019-04-15 15:17 | disposition home or self-care (01) ==
LOC: UCEAST 14:29
DX: H10.9 Unspecified conjunctivitis (principal); E03.9 Hypothyroidism, unspecified; F41.9 Anxiety disorder, unspecified; Z79.899 Other long term (current) drug therapy; Z79.890 Hormone replacement therapy
CPT/HCPCS: 99212; G0463